=== PATIENT | male | born 1930 | race Caucasian/White ===

== ENCOUNTER → 2016-12-03 | Outpatient (CLI) | payer OTHER ==
[~2016-12-03] MED LIST: AMIO200T4 PO; B-COCAP21 PO; BICA50TA6 PO; LPRI75 IM; MIDO5TAB PO; POTA20TA16 PO; XRL15 PO
== END | disposition home or self-care (01) ==
LOC: C.LABMFLN 10:06
PROVIDERS: ATTEND Urology
DX: R33.9 Retention of urine, unspecified (principal)

== ENCOUNTER 2017-06-21 08:43 | Emergency (ER) | payer OTHER ==
[2017-06-21 08:52] VITALS: TEMP 36.4; Ht 175.3 cm
--- NOTE | 2017-06-21 09:11 | EMERGENCY ROOM VISIT NOTE ---
History First contact with patient: 08:55 Chief Complaint: CATHETER REPLACEMENT Stated Complaint: BLOCKED CATH History of Present Illness The patient is an 86 year old male who presents to the Emergency Room with complaints of a blocked Vargas catheter. The patient has had an indwelling Vargas catheter for the last 14 months. He gets it changed every 30 days. He had it changed 2 weeks ago. The patient's states that he often has some blood in the catheter after it is changed. She states that on occasion it seems to get blocked with a blood clot. He is also on Xarelto. The patient denies any pain. He denies any fevers. He denies any abdominal pain. The patient denies any back pain. The patient sees Dr. Preethi Coles regularly and has an appointment in 2 weeks. Review of Systems A 10 system review of systems was completed with positives and pertinent negatives listed in the HPI. Past Medical/Surgical History Medical Problems: (1) Atrial fibrillation (2) Chronic indwelling Vargas catheter (3) Colon cancer (4) Diabetes (5) Hyperlipidemia (6) Hypertension (7) Prostate cancer Social History Smoking Status: Former Smoker Housing Status: lives with family Current/Historical Medications Scheduled Amiodarone Hcl (Cordarone), 200 MG PO DAILY B-Complex W/ C & Folic Acid ([place] Caps), 1 CAP PO DAILY Bicalutamide (Casodex), 50 MG PO DAILY Leuprolide Acetate (Lupron Depot), Unknown Dose IM [id number] Midodrine Hcl (Midodrine Hcl), 1 TAB PO TID Potassium Ext Rel (Klor-Con), 20 MEQ PO BID Rivaroxaban (Xarelto), 1 TAB PO DAILY Physical Exam Vital Signs Date Time Temp Pulse Resp B/P (MAP) Pulse Ox O2 Delivery O2 Flow Rate FiO2 06/21/17 10:50 80 20 164/92 96 06/21/17 08:52 36.4 82 18 136/87 97 Room Air Physical Exam VITALS: Vitals are noted on the nurse's note and reviewed by myself. Vital signs stable. The patient is afebrile. GENERAL: This is an 86-year-old male, in no acute distress, nondiaphoretic, well -developed well-nourished. SKIN: There are chronic venous stasis changes to the bilateral lower extremities. There is no tenting of the skin. Capillary reflex less than 2 seconds. HEAD: Normocephalic atraumatic. EARS: The external ears are normal in appearance. NOSE: Patent, turbinates without inflammation or discharge. MOUTH: Mucous membranes moist. Tongue does not deviate. NECK: Supple without nuchal rigidity. HEART: There is a loud systolic murmur. LUNGS: Clear to auscultation bilaterally without wheezes, rales or rhonchi. No retractions or accessory muscle use. ABDOMEN: Positive bowel sounds x 4. Soft, fullness of the bladder without true tenderness, without masses or organomegaly. : The external genitalia is normal in appearance. A Vargas catheter is present. There is blood in the Vargas catheter bag. MUSCULOSKELETAL: Full range of motion without joint tenderness in all extremities. Normal gait. Strength 5/5 throughout. NEURO: Patient was alert and oriented to person place and time. No focal neurological deficits. Medical Decision & Procedures Laboratory Results Test 06/21/17 10:48 Urine Color YELLOW Urine Appearance CLEAR (CLEAR) Urine pH 5.0 (4.5-7.5) Urine Specific [place] 1.012 (1.000-1.030) Urine Protein TRACE (NEG) Urine Glucose (UA) NEG (NEG) Urine Ketones NEG (NEG) Urine Occult Blood 3+ (NEG) Urine Nitrite NEG (NEG) Urine Bilirubin NEG (NEG) Urine Urobilinogen NEG (NEG) Urine Leukocyte Esterase TRACE (NEG) Urine WBC (Auto) 1-5 /hpf (0-5) Urine RBC (Auto) 0-4 /hpf (0-4) Urine Hyaline Casts (Auto) 1-5 /lpf (0-5) Urine Epithelial Cells (Auto) 0-5 /lpf (0-5) Urine Bacteria (Auto) NEG (NEG) ED Course The patient was seen and examined. Previous visits were reviewed. The patient does not have a fever. The patient reports blocked Vargas catheter. He denies any other symptoms. The catheter was changed by the RN. He was feeling much better and it seemed to be draining appropriately. The patient had some blood in the catheter and a blood clot could have been causing the blockage. The patient states that it is common for him to have blood when he has the catheter changed. A urinalysis was obtained; however, irrigation was performed with saline and hydrogen peroxide. The patient should follow-up with urology for further evaluation and management. He should return with worsening symptoms. The patient was also seen and examined by who agrees with the assessment and treatment plan. Medical Decision Differential diagnosis includes urinary tract infection, urinary retention, bladder cancer, among others Medication Reconcilliation Current Medication List: was personally reviewed by me Blood Pressure Screening Patient's blood pressure: Elevated blood pressure Blood pressure disposition: Elevated BP felt to be situational Impression Primary Impression: Complication of catheter Departure Information Dispostion Home / Self-Care Condition GOOD Referrals Iban Nur M.D. (PCP) Patient Instructions ED Catheter Care Milana Vargas [facility] Additional Instructions Follow up with urology as scheduled Return with worsening symptoms, bleeding, fevers, abdominal pain
[2017-06-21] MEDS ORDERED: MIDO5TAB PO (09:32)
[2017-06-21] MEDS ORDERED: BICA50TA6 PO (09:32)
[2017-06-21] MEDS ORDERED: LPRI75 IM (09:32)
[2017-06-21] MEDS ORDERED: B-COCAP21 PO (09:32)
[2017-06-21] MEDS ORDERED: POTA20TA16 PO (09:32)
[2017-06-21] MEDS ORDERED: AMIO200T4 PO (09:32)
[2017-06-21] MEDS ORDERED: XRL15 PO (09:32)
--- NOTE | 2017-06-21 09:43 | EMERGENCY ROOM VISIT NOTE ---
ED Visit Note First contact with patient: 08:55 86-year-old male with some blood around his catheter was fully evaluated by Lainey Masters PA-C. Please see her note. I also independently evaluated the patient. Vargas catheter was changed.
[2017-06-21 10:50] VITALS: BP 164/92; PULSE 80; O2SAT 96
[2017-06-21 11:05] LABS: URINE APPEARANCE CLEAR (CLEAR); URINE BILIRUBIN NEG (NEG); URINE COLOR YELLOW; URINE EPITHELIAL CELL AUTO 0-5 /lpf (0-5); URINE NITRITE NEG (NEG); URINE SPECIFIC GRAVITY 1.012 (1.000-1.030); UROBILINOGEN NEG (NEG); ZZURINE CULT IF INDIC CATH NO
[2017-06-21 11:08] LABS: MANUAL MICROSCOPIC REQUIRED? NO; REVIEW REQ? NO
== END 2017-06-21 10:53 | disposition home or self-care (01) ==
LOC: C.EDB 08:45
DX: T83.098A Other mechanical complication of other urinary catheter, initial encounter (principal); Y84.6 Urinary catheterization as the cause of abnormal reaction of the patient, or of later complication, without mention of misadventure at the time of the procedure; Z79.01 Long term (current) use of anticoagulants; I48.91 Unspecified atrial fibrillation; E11.9 Type 2 diabetes mellitus without complications; E78.5 Hyperlipidemia, unspecified; I10 Essential (primary) hypertension; Z85.038 Personal history of other malignant neoplasm of large intestine; Z85.46 Personal history of malignant neoplasm of prostate; Z87.891 Personal history of nicotine dependence; Z79.899 Other long term (current) drug therapy

== ENCOUNTER → 2017-07-09 | Outpatient (CLI) | payer OTHER | END | disposition home or self-care (01) | LOC: C.PATHSPEC 17:00 | PROVIDERS: ATTEND Dermatology | DX: C44.622 Squamous cell carcinoma of skin of right upper limb, including shoulder (principal); D04.39 Carcinoma in situ of skin of other parts of face; D04.5 Carcinoma in situ of skin of trunk ==

== ENCOUNTER → 2017-08-24 | Outpatient (CLI) | payer OTHER | END | disposition home or self-care (01) | LOC: C.PATHSPEC 16:39 | PROVIDERS: ATTEND Dermatology | DX: C44.619 Basal cell carcinoma of skin of left upper limb, including shoulder (principal); L90.5 Scar conditions and fibrosis of skin ==

== ENCOUNTER → 2017-11-11 | Outpatient (CLI) | payer OTHER ==
[~2017-11-11] MED LIST changes: +ASCO-63 PO; -MIDO5TAB PO; +MTHH1 PO; +MULT60CA PO
[2017-11-11 17:59] LABS: HEMATOCRIT 41.6 % (42-52); MEAN CELL VOLUME 98.8 fL (80-100); MEAN CORPUSCULAR HEMOGLOBIN 32.3 pg (25-34); MEAN CORPUSCULAR HGB CONC 32.7 g/dl (32-36); MEAN PLATELET VOLUME 9.6 fL (7.4-10.4); PLATELET COUNT 246 K/uL (130-400); RED BLOOD COUNT 4.21 M/uL (4.7-6.1); WHITE BLOOD COUNT 7.47 K/uL (4.8-10.8)
[2017-11-11 18:23] LABS: ALT/SGPT 16 U/L (12-78); AST/SGOT 11 U/L (15-37); BLOOD UREA NITROGEN 23 mg/dl (7-18); BUN/CREATININE RATIO 16.4 (10-20); CALCIUM 9.2 mg/dl (8.5-10.1); CARBON DIOXIDE 26 mmol/L (21-32); CHLORIDE 103 mmol/L (98-107); CREATININE 1.39 mg/dl (0.60-1.40); GLUCOSE 104 mg/dl (70-99); POTASSIUM 4.4 mmol/L (3.5-5.1); SODIUM 137 mmol/L (136-145)
== END | disposition home or self-care (01) ==
LOC: C.LABMFLN 12:34
PROVIDERS: ATTEND Internal Medicine Cardiovascular Disease
DX: I48.91 Unspecified atrial fibrillation (principal); I95.1 Orthostatic hypotension; I35.0 Nonrheumatic aortic (valve) stenosis; R09.89 Other specified symptoms and signs involving the circulatory and respiratory systems

== ENCOUNTER → 2017-11-11 | Outpatient (CLI) | payer OTHER | END | disposition home or self-care (01) | LOC: C.PATHSPEC 12:47 | PROVIDERS: ATTEND Dermatology | DX: L82.1 Other seborrheic keratosis (principal); L57.8 Other skin changes due to chronic exposure to nonionizing radiation ==

== ENCOUNTER → 2017-12-17 | Outpatient (CLI) | payer OTHER | END | disposition home or self-care (01) | LOC: C.LABMFLN 11:18 | PROVIDERS: ATTEND Family Medicine | DX: C61 Malignant neoplasm of prostate (principal) ==

== ENCOUNTER → 2018-01-01 | Outpatient (CLI) | payer OTHER ==
[~2018-01-01] MED LIST changes: +ACET-24 PO; +COLC0.6T54 PO; +HYDR-5688 PO; +MRLP17X PO; +MTR800 PO; +SENN-61 PO
--- NOTE | 2018-01-01 13:33 | DIAGNOSTIC IMAGING REPORT ---
BONE SCAN WHOLE BODY CLINICAL HISTORY: PROSTATE CA COMPARISON STUDY: None FINDINGS: The patient was injected with 25.8 mCi of technetium 99m MDP. Three-hour delayed whole body images were acquired. Foci of increased activity within the knees are felt to be degenerative. There is indwelling Vargas catheter present. There is slight heterogeneity of activity in the lumbar spine likely degenerative. There is a focus of increased activity within the left chromic clavicular joint and] clavicular joint. These are likely degenerative. There is an unexplained focus of increased activity involving the T7 vertebral body. Plain film correlation is advocated. IMPRESSION: 1. Unexplained focus of increased activity involving the T7 vertebral body. Plain film correlation is advocated to determine whether there is a corresponding compression fracture. Additional areas of increased uptake while nonspecific are likely on a degenerative basis Electronically signed by: Colten Mcclellan M.D. 01/01/2018 1:32 PM Dictated Date/Time: 01/01/2018 1:26 PM
== END | disposition home or self-care (01) ==
LOC: C.NUCL 09:43
PROVIDERS: ATTEND Urology
DX: C61 Malignant neoplasm of prostate (principal)

== ENCOUNTER 2018-01-03 09:27 | Observation (INO) | payer OTHER ==
[~2018-01-03] VITALS: Ht 175.3 cm; Wt 74.3 kg
[~2018-01-03 09:27] MED LIST changes: -ACET-24 PO; -COLC0.6T54 PO; -HYDR-5688 PO; -MRLP17X PO; -MTR800 PO; -SENN-61 PO
--- NOTE | 2018-01-03 10:24 | EMERGENCY ROOM VISIT NOTE ---
History Report prepared by Vinicio: Danika Gatica Under the Supervision of: Dr. Henrry Busby M.D. First contact with patient: 09:53 Chief Complaint: CONSTIPATION Stated Complaint: SIDE PAIN, CONSTIPATION Nursing Triage Summary: Patient states "I have not had a bowel movement for 5 days. I've used suppository and they have not work." Denies n/v. History of Present Illness The patient is an 87 year old male who presents to the Emergency Room with complaints of persistent constipation for five days. He usually has a bowel movement every other day, thought his last normal stool was December 29, 2017. He notes his bowel movement was normal and loose at that time. He normally takes laxatives and stool softeners, though he has had no relief in the last five days. He took suppositories four days ago, which provided relief at that time, though he notes the constipation recurred. The patient also reports abdominal pain. Per , the patient was given her medication of hydrocodone and acetaminophen for his pain. He has a history of fecal impaction one year ago for eight days. The patient has a history of prostate cancer in 1991. His PSA was recently checked and showed a value of 125. He has a history of left leg edema. He denies any fevers chills, buttock pain, or chest pain. Source of History: patient, spouse/significant other Onset: five days Position: other (global ) Quality: other (constipation) Timing: other (persistent) Associated Symptoms: + abdominal pain, No fevers, No chills, No chest pain Note: He denies any buttock pain. Review of Systems See HPI for pertinent positives & negatives. A total of 10 systems reviewed and were otherwise negative. 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 Nurse's notes were reviewed and I agree with. Family History Diabetes mellitus FH: heart disease FH: lung disease FHx: cancer Hypertension Kidney disease Kidney stones Social History Smoking Status: Former Smoker Smokeless Tobacco Use: No Alcohol Use: none Drug Use: none Marital Status: Housing Status: lives with significant other Occupation Status: retired Current/Historical Medications Scheduled Amiodarone Hcl (Cordarone), 200 MG PO DAILY Ascorbic Acid (Vitamin C), 500 MG PO BID B-Complex W/ C & Folic Acid ([place] Caps), 1 CAP PO DAILY Bicalutamide (Casodex), 50 MG PO DAILY Leuprolide Acetate (Lupron Depot), Unknown Dose IM [id number] Multiple Vitamins W/ Minerals (Preservision Areds 2), 1 CAP PO DAILY Rivaroxaban (Xarelto), 15 MG PO DAILY Scheduled PRN Colchicine (Colchicine), 0.6 MG PO BID PRN for GOUT Hydrocodone/Acetaminophen 5MG/325MG ([place] 5MG/325MG), 1 TABLET PO UD PRN for Pain Allergies Coded Allergies: Sulfa Antibiotics (Unverified Allergy, Unknown, RED URINE, 01/03/18) Physical Exam Vital Signs Date Time Temp Pulse Resp B/P (MAP) Pulse Ox O2 Delivery O2 Flow Rate FiO2 01/03/18 12:16 74 16 167/88 96 Room Air 01/03/18 11:10 74 14 149/82 96 Room Air 01/03/18 09:32 36.4 88 18 136/83 96 Room Air Physical Exam General: Non-ill appearing older male in no acute distress. HEENT: Normal cephalic atraumatic. Pupils are equal round and reactive to light. Extraocular movements are intact. Oropharynx is pink with moist mucous membranes. No swelling of the mouth lips or tongue. Neck: Supple with a midline trachea. No meningeal signs or stiffness, no JVD or bruits. No Stridor. Chest: Clear to auscultation bilaterally. No wheezes or rhonchi. No increased work of breathing. Heart: regular rate and rhythm. Abdomen: Soft nontender, nondistended without rebound guarding or rigidity. Extremities: No cyanosis clubbing. No calf tenderness or assymetry. Chronic vascular changes. 2+ distal pulses. Spine/Back. Non tender to palpation. No CVA tenderness Skin: Good turgor without rashes. Neurologic exam: Cranial nerves two through 12 are intact. Motor and sensation are intact and symmetrical throughout. Medical Decision & Procedures ER Provider Diagnostic Interpretation: Radiology results as stated below per my review and radiologist interpretation: ABD/PELVIS NO IV OR ORAL CONT CLINICAL HISTORY: 87 years-old Male presenting with eval for constipation, bowel obstruction, no bowel movement for 5 days, history of prostate cancer. TECHNIQUE: Multidetector CT of the abdomen and pelvis was performed without the use of intravenous contrast. IV contrast: None. A dose lowering technique was used consistent with the principles of ALARA (as low as reasonably achievable). COMPARISON: None. CT DOSE (mGy.cm): The estimated cumulative dose is 2252.22 mGy.cm. FINDINGS: Kitchen Manager topogram: Evidence of vasectomy. Lung bases: Extensive consolidation and volume loss in the left lower lobe. There is also suggestion of peribronchovascular consolidation versus a lung nodule in the left lower lobe (series 5 image 13). Additional solid pulmonary nodule in the right middle lobe, measuring 16 mm (series 5 image 59) multiple additional solid pulmonary nodules noted bilaterally, greater on the right. Multichamber enlargement of the heart. Coronary artery and aortic valve calcification. Suggestion of prominent subcarinal pathologically enlarged lymph node (series 5 image 1). Liver: Normal morphology. Normal density. Multiple ill-defined the hypodense lesions in the liver with a suspicious morphology, incompletely characterized without intravenous contrast. Biliary: No gross biliary ductal dilatation allowing for noncontrast technique. Gallbladder contains gallstones. Pancreas: Moderate parenchymal atrophy. Spleen: Normal noncontrast appearance. Adrenal glands: Macroscopic fat-containing 3.6 cm nodule in the lateral limb of the left adrenal gland. Right adrenal gland normal. Kidneys and ureters: Multiple exophytic lesions arising from the lower pole of the left kidney, indeterminate but likely cysts. No hydronephrosis. No nephrolithiasis. Bladder: Decompressed with a Vargas catheter. Large bladder calculi evident. Impression wall thickening possibly chronic outlet obstruction. Pelvic organs: Prostate enlargement likely secondary to benign prostatic hyperplasia. Nodular soft tissue extension from the base of the prostate in the region of the left seminal vesicle. Bowel: Postsurgical changes of the anastomosis in the lower rectum. Nodular soft tissue infiltration in the rectal prostatic recess and along the mesorectal fascia. Extensive infiltration of the presacral region. Mild stool burden in the sigmoid colon to the level of the mid transverse colon. Moderate stool burden in the proximal transverse colon to the cecum. The appendix contains an appendicolith but is otherwise normal. Fecal material noted in the small bowel consistent with delayed transit. No bowel obstruction. Small hilar hernia. Several loops of distal small bowel may be tethered in the right pelvic sidewall. Peritoneal cavity: No free fluid or intraperitoneal gas. Extensive extraperitoneal/retroperitoneal fascial thickening in the pelvis. Lymph nodes: Multiple pathologically enlarged retroperitoneal lymph nodes. And index node in the left periaortic region measures 1.9 cm in the short axis (series 5 image 245). Vasculature: Atherosclerosis of the normal caliber abdominal aorta. Abdominal wall: Postsurgical changes of the infraumbilical midline ventral abdominal wall. Fat-containing left inguinal hernia. Musculoskeletal: Degenerative changes of the spine. Severe osteopenia. Anterior wedging compression deformity of greater than 50% height loss at L2 and to a slightly lesser extent at L4. Kyphoplasty changes at L5. Degenerative changes of the sacroiliac joints. Several old rib fractures noted. IMPRESSION: 1. Findings highly concerning for metastatic disease with retroperitoneal lymphadenopathy, mediastinal lymphadenopathy, hepatic metastases, pulmonary metastases. This is most concerning for metastatic prostate carcinoma. 2. Extensive nodular soft tissue extension from the base of the prostate is highly suspicious for a primary site of malignancy with regional invasion. This may invade the mesorectal fat. 3. Extensive presacral soft tissue/stranding could relate to direct extension of the primary malignancy versus exuberant granulation tissue/fibrosis in the setting of post radiation change. 4. Postsurgical changes of rectal anastomosis. Moderate stool burden primarily in the right and transverse colon compatible with constipation. No bowel obstruction. 5. 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 6. Severe osteopenia. 7. Age-indeterminate compression deformities of L2 and L4. Correlate with point tenderness. The report will be called/faxed according to standard departmental protocol. Electronically signed by: Ameya Talavera M.D. 01/03/2018 11:14 AM Dictated Date/Time: 01/03/2018 11:01 AM THORACIC SPINE WITHOUT CLINICAL HISTORY: 87 years-old Male presenting with eval for thoracic pathology, no bowel movement for 5 days, history of prostate cancer. TECHNIQUE: Multidetector CT of the thoracic spine was performed without the use of intravenous contrast. IV contrast: None. A dose lowering technique was used consistent with the principles of ALARA (as low as reasonably achievable). COMPARISON: Bone scan from 01/01/2018. CT DOSE (mGy.cm): The estimated cumulative dose is 2252.[address] abdomen and pelvis. FINDINGS: Kitchen Manager topogram: Kyphoplasty changes in the lower lumbar spine. Vasectomy. Significant vertebral body height loss of T7, which correlates with the distribution of abnormal radiotracer uptake on recent bone scan, compatible with acute or subacute compression fracture. Severe osteopenia. Significant inferior endplate concavity at L1, possibly related to underlying osteopenia. Altered level degenerative change. No osseous neural foraminal or spinal canal stenosis. A suspected benign hemangioma noted at the 7. No destructive osseous lesion. No malalignment apart from mildly exaggerated thoracic kyphosis secondary to the compression deformity. Evidence of old rib fractures. Multiple solid pulmonary nodules noted in both lungs, greater on the right. Cardiomegaly. Tortuosity and ectasia of the thoracic aorta, which measures 3.8 cm in transverse dimension along the descending portion and 4.2 cm in transverse dimension in the ascending portion. Pathologically enlarged subcarinal lymph node measuring 3.3 cm in the short axis. IMPRESSION: 1. Evidence of pulmonary metastatic disease and mediastinal lymphadenopathy. These likely relate to distant spread of prostate cancer. 2. No destructive osseous lesion to suggest osseous metastatic disease, which is compatible with the recent bone scan. 3. Compression fracture of T7, which is likely acute or subacute. This is compatible with the findings on recent bone scan. 4. Severe osteopenia. The report will be called/faxed according to standard departmental protocol. Electronically signed by: Ameya Talavera M.D. 01/03/2018 11:23 AM Dictated Date/Time: 01/03/2018 11:18 AM Laboratory Results 01/03/18 10:35 Red Blood Count 3.80, Mean Corpuscular Volume 95.5, Mean Corpuscular Hemoglobin 31.8, Mean Corpuscular Hemoglobin Concent 33.3, Mean Platelet Volume 8.4, Neutrophils (%) (Auto) 81.0, Lymphocytes (%) (Auto) 8.2, Monocytes (%) (Auto) 8.7, Eosinophils (%) (Auto) 1.5, Basophils (%) (Auto) 0.3, Neutrophils # (Auto) 4.92, Lymphocytes # (Auto) 0.50, Monocytes # (Auto) 0.53, Eosinophils # (Auto) 0.09, Basophils # (Auto) 0.02 01/03/18 10:35 Test 01/03/18 10:35 White Blood Count 6.08 K/uL (4.8-10.8) Red Blood Count 3.80 M/uL (4.7-6.1) Hemoglobin 12.1 g/dL (14.0-18.0) Hematocrit 36.3 % (42-52) Mean Corpuscular Volume 95.5 fL (80-100) Mean Corpuscular Hemoglobin 31.8 pg (25-34) Mean Corpuscular Hemoglobin Concent 33.3 g/dl (32-36) Platelet Count 232 K/uL (130-400) Mean Platelet Volume 8.4 fL (7.4-10.4) Neutrophils (%) (Auto) 81.0 % Lymphocytes (%) (Auto) 8.2 % Monocytes (%) (Auto) 8.7 % Eosinophils (%) (Auto) 1.5 % Basophils (%) (Auto) 0.3 % Neutrophils # (Auto) 4.92 K/uL (1.4-6.5) Lymphocytes # (Auto) 0.50 K/uL (1.2-3.4) Monocytes # (Auto) 0.53 K/uL (0.11-0.59) Eosinophils # (Auto) 0.09 K/uL (0-0.5) Basophils # (Auto) 0.02 K/uL (0-0.2) RDW Standard Deviation 45.5 fL (36.4-46.3) RDW Coefficient of Variation 13.1 % (11.5-14.5) Immature Granulocyte % (Auto) 0.3 % Immature Granulocyte # (Auto) 0.02 K/uL (0.00-0.02) Anion Gap 7.0 mmol/L (3-11) Est Creatinine Clear Calc Drug Dose 36.7 ml/min Estimated GFR () 51.1 Estimated GFR (Non- 44.1 BUN/Creatinine Ratio 14.4 (10-20) Calcium Level 9.3 mg/dl (8.5-10.1) Laboratory studies as stated above per my review. ED Course 1007: Past medical records reviewed. The patient was evaluated in room A12B, and a complete history and physical examination were performed. 1125: I reassessed the patient at this time. He is resting comfortably. I discussed the results and treatment plan with the patient and his family. I answered all pertaining questions that he had. He expressed understanding and verbalized agreement. The patient will be further evaluated. 1142: I spoke with mary Zarco. We discussed the patient's case. The patient will be evaluated by the [facility] for further management. Medical Decision Differentials include, but are not limited to constipation, cauda equina syndrome, spinous process, and prostate cancer. This patient comes in as described above. He complains of constipation although family says lately he's been having abdominal and back pain has been taking some of his family member's pain medicine. He was seen recently by urology and a bone scan yesterday as there is concern for rising PSA. I reviewed his bone scan and he has a T7 signal but no other signals. His abdomen is benign and nontender. He has no neurologic deficits to suggest cauda equina syndrome. IV access established and blood work was obtained. CAT scan was obtained of the thoracic spine as well as the abdomen. The thoracic spine appears to be a compression fracture. There are multiple metastatic lesions and pathologic nodes within the abdomen, in the retroperitoneum and liver and lungs. There are no bony abnormality seen. This picture is very consistent with metastatic cancer. Given his history this certainly could be prostate cancer however that typically metastases to the bones which this does not. He has a history of primary colon cancer as well and this could be that or another primary source. Given his recent pain and discomfort as well as need for further evaluation, I do think he needs to be a admitted/observed and have consulted Dr. No who saw him in the ER for these measures. Medication Reconcilliation Current Medication List: was personally reviewed by me Blood Pressure Screening Patient's blood pressure: Elevated blood pressure Blood pressure disposition: Elevated BP felt to be situational Consults Time Called: 1132 Consulting Physician: Dr. Rodriguez hospitalist Returned Call: 1142 I spoke with mary Zarco. We discussed the patient's case. The patient will be evaluated by the [facility] for further management. Impression Primary Impression: Metastatic cancer Additional Impressions: Diffuse pain Constipation Scribe Attestation The scribe's documentation has been prepared under my direction and personally reviewed by me in its entirety. I confirm that the note above accurately reflects all work, treatment, procedures, and medical decision making performed by me. Departure Information Dispostion Being Evaluated By Hospitalist Referrals Iban Nur M.D. (PCP) Patient Instructions My [facility] Problem Qualifiers
[2018-01-03] MEDS ORDERED: COLC0.6T54 PO ×2 (10:37)
[2018-01-03] MEDS ORDERED: HYDR-5688 PO ×2 (10:37)
[2018-01-03 10:47] LABS: BASO % 0.3 %; BASO ABS # 0.02 K/uL (0-0.2); EOS % 1.5 %; EOS ABS # 0.09 K/uL (0-0.5); HEMATOCRIT 36.3 % (42-52); HEMOGLOBIN 12.1 g/dL (14.0-18.0); IG# 0.02 K/uL (0.00-0.02); LYMPH % 8.2 %; MEAN CELL VOLUME 95.5 fL (80-100); MEAN CORPUSCULAR HEMOGLOBIN 31.8 pg (25-34); MEAN CORPUSCULAR HGB CONC 33.3 g/dl (32-36); MEAN PLATELET VOLUME 8.4 fL (7.4-10.4); MONO % 8.7 %; MONO ABS # 0.53 K/uL (0.11-0.59); NEUT ABS # 4.92 K/uL (1.4-6.5); PLATELET COUNT 232 K/uL (130-400); RED CELL DISTRIBUTION WIDTH CV 13.1 % (11.5-14.5); RED CELL DISTRIBUTION WIDTH SD 45.5 fL (36.4-46.3); WHITE BLOOD COUNT 6.08 K/uL (4.8-10.8)
[2018-01-03 11:08] LABS: CALCIUM 9.3 mg/dl (8.5-10.1); CREATININE 1.42 mg/dl (0.60-1.40); POTASSIUM 4.4 mmol/L (3.5-5.1)
--- NOTE | 2018-01-03 11:15 | DIAGNOSTIC IMAGING REPORT ---
ABD/PELVIS NO IV OR ORAL CONT CLINICAL HISTORY: 87 years-old Male presenting with eval for constipation, bowel obstruction, no bowel movement for 5 days, history of prostate cancer. TECHNIQUE: Multidetector CT of the abdomen and pelvis was performed without the use of intravenous contrast. IV contrast: None. A dose lowering technique was used consistent with the principles of ALARA (as low as reasonably achievable). COMPARISON: None. CT DOSE (mGy.cm): The estimated cumulative dose is 2252.22 mGy.cm. FINDINGS: Director Information Security topogram: Evidence of vasectomy. Lung bases: Extensive consolidation and volume loss in the left lower lobe. There is also suggestion of peribronchovascular consolidation versus a lung nodule in the left lower lobe (series 5 image 13). Additional solid pulmonary nodule in the right middle lobe, measuring 16 mm (series 5 image 59) multiple additional solid pulmonary nodules noted bilaterally, greater on the right. Multichamber enlargement of the heart. Coronary artery and aortic valve calcification. Suggestion of prominent subcarinal pathologically enlarged lymph node (series 5 image 1). Liver: Normal morphology. Normal density. Multiple ill-defined the hypodense lesions in the liver with a suspicious morphology, incompletely characterized without intravenous contrast. Biliary: No gross biliary ductal dilatation allowing for noncontrast technique. Gallbladder contains gallstones. Pancreas: Moderate parenchymal atrophy. Spleen: Normal noncontrast appearance. Adrenal glands: Macroscopic fat-containing 3.6 cm nodule in the lateral limb of the left adrenal gland. Right adrenal gland normal. Kidneys and ureters: Multiple exophytic lesions arising from the lower pole of the left kidney, indeterminate but likely cysts. No hydronephrosis. No nephrolithiasis. Bladder: Decompressed with a Vargas catheter. Large bladder calculi evident. Impression wall thickening possibly chronic outlet obstruction. Pelvic organs: Prostate enlargement likely secondary to benign prostatic hyperplasia. Nodular soft tissue extension from the base of the prostate in the region of the left seminal vesicle. Bowel: Postsurgical changes of the anastomosis in the lower rectum. Nodular soft tissue infiltration in the rectal prostatic recess and along the mesorectal fascia. Extensive infiltration of the presacral region. Mild stool burden in the sigmoid colon to the level of the mid transverse colon. Moderate stool burden in the proximal transverse colon to the cecum. The appendix contains an appendicolith but is otherwise normal. Fecal material noted in the small bowel consistent with delayed transit. No bowel obstruction. Small hilar hernia. Several loops of distal small bowel may be tethered in the right pelvic sidewall. Peritoneal cavity: No free fluid or intraperitoneal gas. Extensive extraperitoneal/retroperitoneal fascial thickening in the pelvis. Lymph nodes: Multiple pathologically enlarged retroperitoneal lymph nodes. And index node in the left periaortic region measures 1.9 cm in the short axis (series 5 image 245). Vasculature: Atherosclerosis of the normal caliber abdominal aorta. Abdominal wall: Postsurgical changes of the infraumbilical midline ventral abdominal wall. Fat-containing left inguinal hernia. Musculoskeletal: Degenerative changes of the spine. Severe osteopenia. Anterior wedging compression deformity of greater than 50% height loss at L2 and to a slightly lesser extent at L4. Kyphoplasty changes at L5. Degenerative changes of the sacroiliac joints. Several old rib fractures noted. IMPRESSION: 1. Findings highly concerning for metastatic disease with retroperitoneal lymphadenopathy, mediastinal lymphadenopathy, hepatic metastases, pulmonary metastases. This is most concerning for metastatic prostate carcinoma. 2. Extensive nodular soft tissue extension from the base of the prostate is highly suspicious for a primary site of malignancy with regional invasion. This may invade the mesorectal fat. 3. Extensive presacral soft tissue/stranding could relate to direct extension of the primary malignancy versus exuberant granulation tissue/fibrosis in the setting of post radiation change. 4. Postsurgical changes of rectal anastomosis. Moderate stool burden primarily in the right and transverse colon compatible with constipation. No bowel obstruction. 5. 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 6. Severe osteopenia. 7. Age-indeterminate compression deformities of L2 and L4. Correlate with point tenderness. The report will be called/faxed according to standard departmental protocol. Electronically signed by: Ameya Talavera M.D. 01/03/2018 11:14 AM Dictated Date/Time: 01/03/2018 11:01 AM
--- NOTE | 2018-01-03 11:24 | DIAGNOSTIC IMAGING REPORT ---
THORACIC SPINE WITHOUT CLINICAL HISTORY: 87 years-old Male presenting with eval for thoracic pathology, no bowel movement for 5 days, history of prostate cancer. TECHNIQUE: Multidetector CT of the thoracic spine was performed without the use of intravenous contrast. IV contrast: None. A dose lowering technique was used consistent with the principles of ALARA (as low as reasonably achievable). COMPARISON: Bone scan from 01/01/2018. CT DOSE (mGy.cm): The estimated cumulative dose is 2252.[address] abdomen and pelvis. FINDINGS: Clinical Data Associate topogram: Kyphoplasty changes in the lower lumbar spine. Vasectomy. Significant vertebral body height loss of T7, which correlates with the distribution of abnormal radiotracer uptake on recent bone scan, compatible with acute or subacute compression fracture. Severe osteopenia. Significant inferior endplate concavity at L1, possibly related to underlying osteopenia. Altered level degenerative change. No osseous neural foraminal or spinal canal stenosis. A suspected benign hemangioma noted at the 7. No destructive osseous lesion. No malalignment apart from mildly exaggerated thoracic kyphosis secondary to the compression deformity. Evidence of old rib fractures. Multiple solid pulmonary nodules noted in both lungs, greater on the right. Cardiomegaly. Tortuosity and ectasia of the thoracic aorta, which measures 3.8 cm in transverse dimension along the descending portion and 4.2 cm in transverse dimension in the ascending portion. Pathologically enlarged subcarinal lymph node measuring 3.3 cm in the short axis. IMPRESSION: 1. Evidence of pulmonary metastatic disease and mediastinal lymphadenopathy. These likely relate to distant spread of prostate cancer. 2. No destructive osseous lesion to suggest osseous metastatic disease, which is compatible with the recent bone scan. 3. Compression fracture of T7, which is likely acute or subacute. This is compatible with the findings on recent bone scan. 4. Severe osteopenia. The report will be called/faxed according to standard departmental protocol. Electronically signed by: Ameya Talavera M.D. 01/03/2018 11:23 AM Dictated Date/Time: 01/03/2018 11:18 AM
[2018-01-03] MEDS ORDERED: CONSULT PHARMACY STA (12:19)
[2018-01-03] MEDS ORDERED: OXYCODONE HCL IR 5 MG TAB (IMMEDIATE RELEASE) PO PRN (12:30)
[2018-01-03] MEDS ORDERED: ONDANSETRON INJ 2 MG/ML 2 ML VIAL IV PRN (12:30)
[2018-01-03] MEDS ORDERED: ALUMINUM/MAGNESIUM/SIMETH (MAALOX MAX) 30 ML UDC PO PRN (12:30)
[2018-01-03] MEDS ORDERED: SODIUM CHLORIDE 0.9% 1000ML 1,000 ML IV SCH (12:30)
--- NOTE | 2018-01-03 12:37 | History and Physical ---
History & Physical Date & Time of Service: Jan 03, 2018 at 12:32 Chief Complaint: Side Pain, Constipation Primary Care Physician: Iban Nur M.D. History of Present Illness Source: patient, family This pleasant 87-year-old male presents mostly due to weakness and constipation. He had not a bowel movement in 5 days. He is currently being treated for prostate cancer with Casodex and Lupron. He is a history of colonic rectal cancer which was treated by resection and likely radiation. He' s been having increased pain in his spine has been using his 's hydrocodone to treat his pain this plus some previous rectal surgery has likely resulted in significant constipation. Upon evaluation in our ER a CT scan of the abdomen and pelvis shows widely metastatic disease suspected to be of prostate origin. He also has 3 compression fractures T7 L2 and L4. Patient seemingly was unaware of the metastatic nature of his prostate cancer. His was present in the room is unable to care for him at home given his level of weakness and inability to ambulate due to his loss of strength. We discussed possibly progression towards palliative care and they have not had this discussion with her outpatient providers this may be the opportune time to again discussing goals of care for the future given the CAT scan findings. The patient is agreeable to stay for pain control, constipation improvement, and palliative care discussion. It incidentally noted on admission that he has a stage I to 2 sacral decubitus present on admission likely due to his recent immobility Past Medical/Surgical History Medical Problems: (1) Atrial fibrillation Status: Chronic (2) Chronic indwelling Vargas catheter Status: Chronic (3) Colon cancer Status: Resolved (4) Diabetes Status: Chronic (5) Hyperlipidemia Status: Chronic (6) Hypertension Status: Chronic (7) Prostate cancer Status: Resolved Family History Diabetes mellitus FH: heart disease FH: lung disease FHx: cancer Hypertension Kidney disease Kidney stones Social History Smoking Status: Former Smoker Smokeless Tobacco Use: No Drug Use: none Marital Status: Occupational Status: retired Immunizations History of Influenza Vaccine: Unknown Multi-Drug Resistant Organisms History of MDRO: Yes Type of MDRO: MRSA Allergies Coded Allergies: Sulfa Antibiotics (Unverified Allergy, Unknown, RED URINE, 01/03/18) Home Medications Scheduled Amiodarone Hcl (Cordarone), 200 MG PO DAILY Ascorbic Acid (Vitamin C), 500 MG PO BID B-Complex W/ C & Folic Acid (Presley Caps), 1 CAP PO DAILY Bicalutamide (Casodex), 50 MG PO DAILY Leuprolide Acetate (Lupron Depot), Unknown Dose IM [id number] Multiple Vitamins W/ Minerals (Preservision Areds 2), 1 CAP PO DAILY Rivaroxaban (Xarelto), 15 MG PO DAILY Scheduled PRN Colchicine (Colchicine), 0.6 MG PO BID PRN for GOUT Hydrocodone/Acetaminophen 5MG/325MG ([place] 5MG/325MG), 1 TABLET PO UD PRN for Pain Review of Systems ROS: Patient appears aged has a drooping right lower eyelid and is fairly immobile even to move himself about his bed No double vision blurry vision No problems with speech or swallowing No palpitations, chest pain or pressure No Wheezing or breathing issues Patient has had mild abdominal pain and bloating mostly in the left lower quadrant and marked constipation but no nausea or vomiting No burning urine she's had urinary incontinence and a Vargas catheter was placed in the ER No focal joint pain or muscle pain Patient is changes of chronic venous stasis to his lower extremities bilaterally No unusual bruising or bleeding Lumbar focused back pain no focal numbness but general loss of strength No changes in memory or confusion Physical Exam Vital Signs Date Time Temp Pulse Resp B/P (MAP) Pulse Ox O2 Delivery O2 Flow Rate FiO2 01/03/18 12:16 74 16 167/88 96 Room Air 01/03/18 11:10 74 14 149/82 96 Room Air 01/03/18 09:32 36.4 88 18 136/83 96 Room Air General Appearance: WD/WN, no apparent distress Head: normocephalic, atraumatic Eyes: sclerae normal, + pertinent finding (right lower eyelid is drooping) ENT: hearing grossly normal, pharynx normal Neck: supple, no JVD Respiratory/Chest: chest non-tender, lungs clear, normal breath sounds Cardiovascular: regular rate, rhythm (although history of atrial fibrillation) , no murmur Abdomen/GI: + tenderness (mild to the left lower quadrant), + distended, + pertinent finding (rectal exam was performed showing no obstipation is a very large can of fibrotic area in his rectum streets sharp angle right after entering his rectum) Genitourinary - Male: normal male genitalia, normal phallus Back: + pertinent finding (patient has point tenderness his lumbar spine but no paravertebral tenderness) Extremities/Musculoskelatal: + pertinent finding (as mentioned chronic venous stasis and mild edema to his lower extremities pulses are intact however bilaterally to the posterior tibialis) Neurologic/Psych: alert, oriented x 3 Skin: + pertinent finding (CC changes of chronic venous stasis) Diagnostics Laboratory Results Results Past 24 Hours Test 01/03/18 10:35 Range/Units White Blood Count 6.08 4.8-10.8 K/uL Red Blood Count 3.80 4.7-6.1 M/uL Hemoglobin 12.1 14.0-18.0 g/dL Hematocrit 36.3 42-52 % Mean Corpuscular Volume 95.5 80-100 fL Mean Corpuscular Hemoglobin 31.8 25-34 pg Mean Corpuscular Hemoglobin Concent 33.3 32-36 g/dl Platelet Count 232 130-400 K/uL Mean Platelet Volume 8.4 7.4-10.4 fL Neutrophils (%) (Auto) 81.0 % Lymphocytes (%) (Auto) 8.2 % Monocytes (%) (Auto) 8.7 % Eosinophils (%) (Auto) 1.5 % Basophils (%) (Auto) 0.3 % Neutrophils # (Auto) 4.92 1.4-6.5 K/uL Lymphocytes # (Auto) 0.50 1.2-3.4 K/uL Monocytes # (Auto) 0.53 0.11-0.59 K/uL Eosinophils # (Auto) 0.09 0-0.5 K/uL Basophils # (Auto) 0.02 0-0.2 K/uL RDW Standard Deviation 45.5 36.4-46.3 fL RDW Coefficient of Variation 13.1 11.5-14.5 % Immature Granulocyte % (Auto) 0.3 % Immature Granulocyte # (Auto) 0.02 0.00-0.02 K/uL Sodium Level 135 136-145 mmol/L Potassium Level 4.4 3.5-5.1 mmol/L Chloride Level 102 98-107 mmol/L Carbon Dioxide Level 25 21-32 mmol/L Anion Gap 7.0 3-11 mmol/L Blood Urea Nitrogen 21 7-18 mg/dl Creatinine 1.42 0.60-1.40 mg/dl Est Creatinine Clear Calc Drug Dose 36.7 ml/min Estimated GFR () 51.1 Estimated GFR (Non- 44.1 BUN/Creatinine Ratio 14.4 10-20 Random Glucose 129 70-99 mg/dl Calcium Level 9.3 8.5-10.1 mg/dl Diagnostic Radiology CT scan abdomen and pelvis 1. Findings highly concerning for metastatic disease with retroperitoneal lymphadenopathy, mediastinal lymphadenopathy, hepatic metastases, pulmonary metastases. This is most concerning for metastatic prostate carcinoma. 2. Extensive nodular soft tissue extension from the base of the prostate is highly suspicious for a primary site of malignancy with regional invasion. This may invade the mesorectal fat. 3. Extensive presacral soft tissue/stranding could relate to direct extension of the primary malignancy versus exuberant granulation tissue/fibrosis in the setting of post radiation change. 4. Postsurgical changes of rectal anastomosis. Moderate stool burden primarily in the right and transverse colon compatible with constipation. No bowel obstruction. 5. 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 6. Severe osteopenia. 7. Age-indeterminate compression deformities of L2 and L4. Correlate with point tenderness. CT scan of the thorax also shows T7 compression fracture plus evidence of pulmonary metastatic disease and mediastinal lymphadenopathy. These likely relate to distant spread of prostate cancer. Impression Assessment and Plan 87-year-old male who presents with constipation and issues with back pain found to have widely metastatic prostate cancer Prostate cancer we'll continue his Casodex his Lupron is every 6 months will courtesy notify Dr[address] Toribio informally consult heme on to see if there is any other salvage therapeutically be given will also consult palliative care as goals of care need to be discussed with the family For his pain control off from parenteral opiate control scheduled Tylenol and oral oxycodone palliative care can also help with medication choices Constipation there is no obstipation or blockage in his rectal canal that we can feel by exam we will use MiraLAX Senokot. Consideration of Relistor is also undertaken Atrial fibrillation patient will remain on amiodarone and Xarelto, if oncology wishes to pursue a biopsy of any of the metastatic lesions Xarelto will need to be held DVT prevention is Xarelto Patient is a DO NOT RESUSCITATE confirmed in the room with his son and present Level of Care considering transition to palliative care Advanced Directives Existing Advance Directive: Yes Resuscitation Status DO NOT RESUSCITATE VTE Prophylaxis VTE Risk Assessment Done? Y/N: Yes Risk Level: Moderate Given or contraindicated: Other Anticoagulation
[2018-01-03] MEDS: AMIODARONE 200 MG TAB PO SCH (14:00)
[2018-01-03 14:08] VITALS: BP 188/93; PULSE 75; TEMP 36.6; O2SAT 95; Ht 175.3 cm; Wt 74.3 kg
[2018-01-03] MEDS ORDERED: IV FLUIDS COMPLETED PRN (14:30)
[2018-01-03 15:30] VITALS: BP 162/82; PULSE 71; TEMP 36.3; O2SAT 97
[2018-01-03] MEDS: RIVAROXABAN TAB 15 MG TAB PO SCH (15:31)
[2018-01-03] MEDS: POLYETHYLENE (MIRALAX) 17 GM PACK PO SCH (15:37)
[2018-01-03] MEDS: SENNA 8.6 MG TAB PO SCH (15:39)
[2018-01-03] MEDS: MAGNESIUM HYDROXIDE SUSP 30 ML UDC PO PRN (15:45)
--- NOTE | 2018-01-03 16:26 | Oncology Consultation ---
Oncology/Heme Consultation Date of Consultation: Jan 03, 2018. Attending Physician: Rashad No M.D. Reason for Consultation: History of prostate and rectal carcinoma History of Present Illness Mr. Calix is a delightful 87-year-old gentleman that states he has a history of prostate carcinoma that dates back to early . He states he was treated immediately with Casodex in the past couple years he has been receiving Lupron. The bulk of his care up until very recently has been in the [facility]. In 1998 he states he was found to have cancer in what I suspect was the rectal area. He was told by his oncologist Dr. Jimenez that the cancer seem to be located only in the rectum and after surgery the patient had what sounds like a bimodality therapy. He is now admitted with back pain is been ongoing for the past 3-4 weeks. He points to an area that is around T7 or T8. He states he has had back problems before with back pain and has had surgery for prior back problems. A CT scan done on admission shows changes that will be reviewed but seem to be more consistent with osteopenia and subsequent fracture rather than metastatic disease. However CT scan reports have commented on changes consistent metastatic deposits to the live, mediastinal adenopathy, as well as the lungs, and retroperitoneal adenopathy. We are asked to comment about this. His performance status could be easily graded at 2.0-3.0. He has had constipation in addition. He denies any fever chills or any other bone pain. He states his weight has been stable. He seems to be a fair to good historian Past Medical/Surgical History Medical Problems: (1) Complication of catheter Status: Acute (2) Diffuse pain Status: Acute (3) Hematuria Status: Acute (4) Metastatic cancer Status: Acute Family History Diabetes mellitus FH: heart disease FH: lung disease FHx: cancer Hypertension Kidney disease Kidney stones Social History Smoking Status: Former Smoker Smokeless Tobacco Use: No Drug Use: none Marital Status: Housing Status: lives with significant other Occupation Status: retired Allergies Coded Allergies: Sulfa Antibiotics (Unverified Allergy, Unknown, RED URINE, 01/03/18) Home Medications Scheduled Amiodarone Hcl (Cordarone), 200 MG PO DAILY Ascorbic Acid (Vitamin C), 500 MG PO BID B-Complex W/ C & Folic Acid ([place] Caps), 1 CAP PO DAILY Bicalutamide (Casodex), 50 MG PO DAILY Leuprolide Acetate (Lupron Depot), Unknown Dose IM [id number] Multiple Vitamins W/ Minerals (Preservision Areds 2), 1 CAP PO DAILY Rivaroxaban (Xarelto), 15 MG PO DAILY Scheduled PRN Colchicine (Colchicine), 0.6 MG PO BID PRN for GOUT Hydrocodone/Acetaminophen 5MG/325MG ([place] 5MG/325MG), 1 TABLET PO UD PRN for Pain Current Inpatient Medications Current Inpatient Medications Medications (Trade) Dose Ordered Sig/Erik Route Start Time Stop Time Status Last Admin Dose Admin Amiodarone HCl (Cordarone Tab) 200 mg DAILY PO 01/03/18 14:00 02/02/18 13:59 Bicalutamide (Casodex Tab) 50 mg DAILY PO 01/04/18 08:00 02/03/18 08:59 Rivaroxaban (Xarelto Tab) 15 mg QDD PO 01/03/18 17:00 02/02/18 16:59 01/03/18 15:31 15 MG Al Hydrox/Mg Hydrox/Simethicone (Maalox Max Susp) 15 ml Q4H PRN PO 01/03/18 12:30 02/02/18 12:29 Magnesium Hydroxide (Milk Of Magnesia Susp) 30 ml Q6H PRN PO 01/03/18 12:30 02/02/18 12:29 01/03/18 15:45 30 ML Ondansetron HCl (Zofran Inj) 4 mg Q6H PRN IV 01/03/18 12:30 02/02/18 12:29 Oxycodone HCl (Roxicodone Immediate Rel Tab) 10 mg Q6 PRN PO 01/03/18 12:30 01/17/18 12:29 Acetaminophen (Tylenol Tab) 1,000 mg BID PO 01/03/18 20:00 02/02/18 20:59 Polyethylene (Miralax Powder Packet) 17 gm BID PO 01/03/18 20:00 02/02/18 20:59 01/03/18 15:37 17 GM Senna (Senokot Tab) 8.6 mg BID PO 01/03/18 20:00 02/02/18 20:59 01/03/18 15:39 8.6 MG Sodium Chloride 1,000 ml @ 100 mls/hr Q10H IV 01/03/18 12:30 01/03/18 22:29 01/03/18 15:31 100 MLS/HR Miscellaneous (Iv Fluids Completed) 1 ea PRN PRN N/A 01/03/18 14:30 01/03/19 14:29 Review of Systems Constitutional: Negative for weight loss, night sweats, or fever Eyes: Negative for event change of vision ENT: Negative for epistaxis, nasal discharge, sore throat, or deafness Cardiovascular: Negative for chest pain, palpitations, dizziness, diaphoresis Respiratory: Negative for new shortness of breath,hemoptysis, or purulent cough Gastrointestinal: Negative for diarrhea, hematemesis, melena, nausea, vomiting , or dyspepsia. He has been constipated. Integumentary (skin): Negative for rash or jaundice discoloration Genitourinary: Negative for urinary frequency or dysuria Neurological: Negative for weakness, seizure activity, headache, or dizziness Lymphatic/Hematologic: Negative for petechiae, bleeding or new adenopathy Musculoskeletal: Positive for back pain that seems rather focal as reviewed Allergic/Immunologic: Negative for unusual rash or pruritis. Physical Exam Date Time Temp Pulse Resp B/P (MAP) Pulse Ox O2 Delivery O2 Flow Rate FiO2 01/03/18 14:08 36.6 75 16 188/93 95 Room Air 01/03/18 13:19 69 16 172/88 95 01/03/18 12:16 74 16 167/88 96 Room Air 01/03/18 11:10 74 14 149/82 96 Room Air 01/03/18 09:32 36.4 88 18 136/83 96 Room Air Constitutional: vitals are stable. Elderly delightful gentleman. He appears quite comfortable.. Eyes: Eyes are SAVANNA EOMI without conjuctival erythema or icterus. ENT: External examination was negative for masses. Neck: Negative for masses or palpable thyromegaly Respiratory: Lung sounds were generally clear bilaterally Cardiovascular: Heart was RRR without significant murmur, gallops aoe rubs Gastrointestinal: No palpable hepatic or splenomegaly. The abdomen was soft with normal bowel sounds. He has an Vargas catheter that I believe is been in place for quite some time. Lymphatic system: there was no palpable peripheral lymphadenopathy Musculoskeletal System: The musculoskeletal system seemed concordant with age. Skin: The skin was negative for jaundice. Neurologic exam: The exam was negative for any focal findings. Deep tendon reflexes were equal and symmetrical. 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 Psychiatric exam: Was essentially negative with normal mood and effect. Extremities: negative for edema. Laboratory Results Last 24 Hours Test 01/03/18 10:35 01/03/18 16:19 White Blood Count 6.08 K/uL Red Blood Count 3.80 M/uL Hemoglobin 12.1 g/dL Hematocrit 36.3 % Mean Corpuscular Volume 95.5 fL Mean Corpuscular Hemoglobin 31.8 pg Mean Corpuscular Hemoglobin Concent 33.3 g/dl Platelet Count 232 K/uL Mean Platelet Volume 8.4 fL Neutrophils (%) (Auto) 81.0 % Lymphocytes (%) (Auto) 8.2 % Monocytes (%) (Auto) 8.7 % Eosinophils (%) (Auto) 1.5 % Basophils (%) (Auto) 0.3 % Neutrophils # (Auto) 4.92 K/uL Lymphocytes # (Auto) 0.50 K/uL Monocytes # (Auto) 0.53 K/uL Eosinophils # (Auto) 0.09 K/uL Basophils # (Auto) 0.02 K/uL RDW Standard Deviation 45.5 fL RDW Coefficient of Variation 13.1 % Immature Granulocyte % (Auto) 0.3 % Immature Granulocyte # (Auto) 0.02 K/uL Sodium Level 135 mmol/L Potassium Level 4.4 mmol/L Chloride Level 102 mmol/L Carbon Dioxide Level 25 mmol/L Anion Gap 7.0 mmol/L Blood Urea Nitrogen 21 mg/dl Creatinine 1.42 mg/dl Est Creatinine Clear Calc Drug Dose 36.7 ml/min Estimated GFR () 51.1 Estimated GFR (Non- 44.1 BUN/Creatinine Ratio 14.4 Random Glucose 129 mg/dl Calcium Level 9.3 mg/dl Assessment & Plan Repeat recent PSA was more elevated than it was last year at this time. 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 It is unclear as to whether the nodules seen on CT scan represent metastatic disease from the prostate or perhaps the rectal lesion. We will ask for a CEA as well as repeat PSA and a testosterone level. I like to try to get the records out of [place] (Dr. Davion Jimenez). It is unclear as to whether the patient has had any serial x-rays done in the [place] area that might give us some insight. In addition I will stop the Casodex. He is been on this medicine for quite some time (over 20 years) sometimes just withdrawing Casodex can lead to a PSA and prostate cancer response at 20-25%. Prednisone 5 mg twice daily could be added to that. Our service will follow.
[2018-01-03 20:00] VITALS: BP 168/86; PULSE 80; TEMP 36.4; O2SAT 96
[2018-01-03 20:20] VITALS: O2SAT 96
[2018-01-03] MEDS: ACETAMINOPHEN 500 MG TAB PO SCH (20:24)
[2018-01-04] VITALS (7 sets, daily range): BP systolic 111–177; BP diastolic 73–98; PULSE 62–79; TEMP 36.4–36.6; O2SAT 9–99
[2018-01-04 06:37] LABS: HEMOGLOBIN 11.8 g/dL (14.0-18.0); MEAN CELL VOLUME 95.7 fL (80-100); MEAN CORPUSCULAR HEMOGLOBIN 31.4 pg (25-34); MEAN CORPUSCULAR HGB CONC 32.8 g/dl (32-36); MEAN PLATELET VOLUME 8.6 fL (7.4-10.4); PLATELET COUNT 231 K/uL (130-400); RED CELL DISTRIBUTION WIDTH CV 13.3 % (11.5-14.5); WHITE BLOOD COUNT 5.87 K/uL (4.8-10.8)
[2018-01-04 07:20] LABS: CALCIUM 9.1 mg/dl (8.5-10.1); CREATININE 1.12 mg/dl (0.60-1.40); POTASSIUM 4.1 mmol/L (3.5-5.1)
[2018-01-04] MEDS ORDERED: BICALUTAMIDE 50 MG TAB PO SCH (08:00)
[2018-01-04] MEDS: AMIODARONE 200 MG TAB PO SCH (08:37)
[2018-01-04] MEDS: SENNA 8.6 MG TAB PO SCH ×2 (08:38→20:20)
[2018-01-04] MEDS: POLYETHYLENE (MIRALAX) 17 GM PACK PO SCH ×2 (08:38→20:00)
[2018-01-04] MEDS: ACETAMINOPHEN 500 MG TAB PO SCH ×2 (08:39→20:20)
[2018-01-04] MEDS: MAGNESIUM HYDROXIDE SUSP 30 ML UDC PO PRN (08:39)
--- NOTE | 2018-01-04 09:02 | HEME/ONC PROGRESS NOTE ---
DATE: 01/04/2018 DIAGNOSES: 1. Constipation. 2. 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 3. Chronic pain syndrome. SUBJECTIVE: Mr. Barraza is a very pleasant 87-year-old gentleman who was admitted to [facility] yesterday with several days of constipation. Apparently, he is established with Dr. Clay Jimenez in [facility] with the diagnosis of metastatic prostate cancer. He had been on a combination of Lupron and Casodex. PSA on admission measured 172. CT scan of the abdomen and pelvis was performed on admission with findings concerning for metastatic disease including retroperitoneal and mediastinal lymphadenopathy as well as hepatic metastasis and possibly pulmonary metastasis. Extensive nodular soft tissue extension from the base of the prostate is also present. Apparently, leading up to admission, he had been experiencing what he describes as low back pain. He was taking his 's pain medication, which most likely contributed to his constipation. Dr. Esteban saw him initially yesterday and discontinued Casodex. The patient was examined at bedside this morning. He is awake, alert, and appropriate. He still has not moved his bowels, however. PHYSICAL EXAMINATION: GENERAL: He is a pleasant 87-year-old gentleman in no acute distress. VITAL SIGNS: Temperature 36.6, pulse 62, respirations 20, blood pressure 175/98. SKIN: Without rash or lesion. HEENT: Oral mucosa without erythema or ulceration. NECK: Supple. HEART: Early systolic murmur heard in the left precordium, 2/6 in intensity. LUNGS: Clear to auscultation bilaterally. ABDOMEN: Somewhat distended and firm. Bowel sounds are hypoactive. EXTREMITIES: No clubbing, cyanosis or edema. NEUROLOGIC: Grossly intact. LABORATORY DATA: Sodium 134, potassium 4.1, chloride 101, carbon dioxide 28, creatinine 1.12, BUN 17. WBC count 5870, hemoglobin 11.8, platelet count 231,000. IMPRESSION: 1. Constipation. 2. Chronic pain syndrome secondary to progressive metastatic disease. 3. Metastatic prostate cancer. PLAN: Mr. Barraza is a pleasant 87-year-old gentleman currently under Dr. Clay Jimenez's care for metastatic prostate cancer. It would appear upon discussing Mr. Barraza's issues with him he has not been followed very closely. It sounds like he receives leuprolide through the urology service. He has been on Casodex for many years. Dr. Esteban has discontinued Casodex, which is a maneuver to try to elicit hormone withdrawal response to tumor. At some point, Mr. Barraza needs to be reevaluated and considered for a therapeutic change. I understand palliative consult was ordered which I believe is reasonable. Goal of his admission is to alleviate constipative symptoms, consider pain management consult as well. I have nothing further to add. We will be more than happy to see him periodically during his hospital stay. TONEYD
[2018-01-04] MEDS ORDERED: HydrALAZINE HCL 20 MG/ML VIAL IV. PRN (09:45)
[2018-01-04] MEDS ORDERED: LISINOPRIL 5 MG TAB PO ONE (10:00)
[2018-01-04] MEDS ORDERED: SOD PHOSPHATE/SOD BIPHOSPHATE ENEMA 132 ML BTL PR PRN (10:30)
[2018-01-04] MEDS ORDERED: MAGNESIUM CITRATE 296 ML/BTL PO ONE (10:30)
[2018-01-04] MEDS ORDERED: MAGNESIUM CITRATE 296 ML/BTL PO PRN (10:30)
[2018-01-04] MEDS ORDERED: BISACODYL 10 MG SUPP PR PRN (10:30)
--- NOTE | 2018-01-04 11:18 | Palliative Care Consultation ---
Consultation Date of Consultation: Jan 04, 2018. Requesting Physician: Dr. No Attending Physician: Dr. Blanco Reason for Consultation: Goals of care History of Present Illness This 87 year old male patient with PMH prostate cancer, afib, chronic Vargas, DM , and others listed below, presented to the hospital a few days ago with back pain and constipation. Patient lives at home with and typically doctors in [place], his primary oncologist being Dr. Jimenez. Patient was diagnosed with prostate cancer in the ', has been on Lupron and Casodex for many years. Sounds like he does not follow up regularly/closely, but has been doing fairly well until recently. He has become progressively weaker and has had increased back pain. He began taking some of his 's hydrocodone for the pain and became constipated-- no BM since Thursday of last week. Patient had CT scan upon admission which did show marked constipation, but also revealed widespread metastatic disease to the lungs and liver, he also has retroperitoneal lymphadenopathy concerning for mets. Given these new findings, palliative care is consulted as well as heme/onc. I met with patient this morning in room 417. He is hard of hearing, but awake, alert and oriented x4. He denies any complaints at this time but did have to take Tylenol this morning for his back pain-- he states the Tylenol worked. Patient is realistic about his situation. He says that he is "87 years old, I don't want to take anything (further chemo) that's going to make me worse." However, patient says he really has not had a conversation about this with Dr. Jimenez or his family. He does know he would like to go home regardless of the plan. We discussed hospice care as an option, patient would be agreeable but again would like to talk with oncologist and family. See plan below. Past Medical/Surgical History Medical History: Afib Chronic Vargas catheter Colon cancer Prostate cancer DM HLD Htn Social History Smoking Status: Former Smoker History of Alcohol Use: No Drug Use: none Marital Status: Occupation Status: retired Review of Systems Constitutional: No fever, No weakness (is mostly in wheelchair at baseline) ENT: No trouble swallowing Respiratory: No cough, No shortness of breath, No dyspnea on exertion Cardiac: + edema (left leg), No chest pain Abdomen: + constipation, No pain, No nausea, No vomiting Musculoskeletal: + problem reported (back pain) Male : No problem reported (has catheter) Psychiatric: No depression symptoms, No anxiety Allergies Coded Allergies: Sulfa Antibiotics (Unverified Allergy, Unknown, RED URINE, 01/03/18) Medications Current Inpatient Medications Medications (Trade) Dose Ordered Sig/Erik Route Start Time Stop Time Status Last Admin Dose Admin Amiodarone HCl (Cordarone Tab) 200 mg DAILY PO 01/03/18 14:00 02/02/18 13:59 01/04/18 08:37 200 MG Rivaroxaban (Xarelto Tab) 15 mg QDD PO 01/03/18 17:00 02/02/18 16:59 01/03/18 15:31 15 MG Al Hydrox/Mg Hydrox/Simethicone (Maalox Max Susp) 15 ml Q4H PRN PO 01/03/18 12:30 02/02/18 12:29 Magnesium Hydroxide (Milk Of Magnesia Susp) 30 ml Q6H PRN PO 01/03/18 12:30 02/02/18 12:29 01/04/18 08:39 30 ML Ondansetron HCl (Zofran Inj) 4 mg Q6H PRN IV 01/03/18 12:30 02/02/18 12:29 Oxycodone HCl (Roxicodone Immediate Rel Tab) 10 mg Q6 PRN PO 01/03/18 12:30 01/17/18 12:29 Acetaminophen (Tylenol Tab) 1,000 mg BID PO 01/03/18 20:00 02/02/18 20:59 01/04/18 08:39 1,000 MG Polyethylene (Miralax Powder Packet) 17 gm BID PO 01/03/18 20:00 02/02/18 20:59 01/04/18 08:38 17 GM Senna (Senokot Tab) 8.6 mg BID PO 01/03/18 20:00 02/02/18 20:59 01/04/18 08:38 8.6 MG Miscellaneous (Iv Fluids Completed) 1 ea PRN PRN N/A 01/03/18 14:30 01/03/19 14:29 01/04/18 03:15 1 EA Prednisone (PredniSONE TAB) 5 mg BID PO 01/03/18 20:00 02/02/18 19:59 01/04/18 08:37 5 MG Hydralazine HCl (HydrALAZINE INJ) 20 mg Q6 PRN IV. 01/04/18 09:45 02/03/18 09:44 Lisinopril (Zestril Tab) 5 mg QAM PO 01/05/18 08:00 02/04/18 07:59 Magnesium Citrate (Citrate Of Magnesia Soln) 150 ml DAILY PRN PO 01/04/18 10:30 02/03/18 10:29 Bisacodyl (Dulcolax Supp) 10 mg DAILY PRN NJ 01/04/18 10:30 02/03/18 10:29 Sodium Biphosphate/ Sodium Phosphate (Fleet Enema) 132 ml DAILY PRN NJ 01/04/18 10:30 02/03/18 10:29 Physical Exam Date Time Temp Pulse Resp B/P (MAP) Pulse Ox O2 Delivery O2 Flow Rate FiO2 01/04/18 08:00 99 Room Air 01/04/18 08:00 36.4 78 18 170/92 (118) 99 Room Air 01/04/18 04:00 36.6 62 20 175/98 (123) 96 Room Air 01/04/18 00:05 9 Room Air 01/04/18 00:00 36.6 70 18 177/92 (120) 96 Room Air 01/03/18 20:20 96 Room Air 01/03/18 20:00 36.4 80 18 168/86 (113) 96 Room Air 01/03/18 15:30 36.3 71 20 162/82 (108) 97 Room Air 01/03/18 14:08 36.6 75 16 188/93 95 Room Air 01/03/18 13:19 69 16 172/88 95 01/03/18 12:16 74 16 167/88 96 Room Air General Appearance: no apparent distress, + pertinent finding (frail, elderly) ENT: hearing grossly normal Neck: supple, no JVD Respiratory: no respiratory distress, no accessory muscle use, + decreased breath sounds (bilateral bases) Cardiovascular: regular rate, rhythm, + pertinent finding (left leg +1 pitting edema; weak pedal pulses due to PVD) Abdomen: normal bowel sounds, non tender, soft, + pertinent finding (states he is not passing gas, but did have a smear bowel movement this morning) Neurologic/Psychiatric: alert, normal mood/affect, oriented x 3 Skin: + pertinent finding (purple skin) Laboratory Results Last 24 Hours Test 01/03/18 16:23 01/03/18 20:41 01/04/18 06:14 Carcinoembryonic Antigen 0.7 ng/ml Prostate Specific Antigen 172.000 ng/ml Total Testosterone 11.2 ng/dl Bedside Glucose 129 mg/dl White Blood Count 5.87 K/uL Red Blood Count 3.76 M/uL Hemoglobin 11.8 g/dL Hematocrit 36.0 % Mean Corpuscular Volume 95.7 fL Mean Corpuscular Hemoglobin 31.4 pg Mean Corpuscular Hemoglobin Concent 32.8 g/dl RDW Standard Deviation 46.0 fL RDW Coefficient of Variation 13.3 % Platelet Count 231 K/uL Mean Platelet Volume 8.6 fL Sodium Level 134 mmol/L Potassium Level 4.1 mmol/L Chloride Level 101 mmol/L Carbon Dioxide Level 28 mmol/L Anion Gap 5.0 mmol/L Blood Urea Nitrogen 17 mg/dl Creatinine 1.12 mg/dl Est Creatinine Clear Calc Drug Dose 46.5 ml/min Estimated GFR () 68.1 Estimated GFR (Non- 58.7 BUN/Creatinine Ratio 15.0 Random Glucose 115 mg/dl Calcium Level 9.1 mg/dl Assessment & Plan Problem list: Back pain Constipation Weakness Compression fracture at T7; compression deformities at L2 and L4 Prostate cancer since - PSA 172 Widespread metastases- lungs, liver, retroperitoneal lymphadenopathy Goals of care (Z51.5) Palliative care recs: -Patient is DNR. -Hospitalist team is treating patient's constipation. -Does not want invasive/aggressive treatment if it is not going to be of significant benefit. -Patient states he really just wants to go home, would want to stay out of hospital. States he only came here because of his constipation. -We discussed the option of hospice care- what it is and the service they provide. Patient is in agreement but needs to talk with his family and would like to talk to his primary oncologist from [place]. -Is being seen in the interim by our heme/onc physicians at [facility] who discontinued Casodex and placed patient on prednisone. They state that patient needs a reevaluation by his primary oncologist for therapeutic change and progression of disease. They have nothing further to add at this time. -Patient states his pain is better. Would alternate Tylenol and Ibuprofen as needed at this time as patient wants to avoid narcotics if possible given the constipation issue. Does have Roxicodone ordered if needed, consider decreasing the dose to 5mg instead of 10mg Q6h PRN. Thank you kindly for this consult. I will follow as needed. Total time spent 50 minutes. Greater than 50% of time with the patient was spent on counseling and coordinating care.
[2018-01-04] MEDS ORDERED: OXYCODONE HCL IR 5 MG TAB (IMMEDIATE RELEASE) PO PRN (16:45)
[2018-01-04] MEDS ORDERED: IBUPROFEN 800 MG TAB PO PRN (16:45)
--- NOTE | 2018-01-04 16:45 | Hospitalist Progress Note ---
Hospitalist Progress Note Date of Service Jan 04, 2018. Subjective Pt evaluation today including: conversation w/ patient, conversation w/ family ( and family friend), physical exam, chart review, lab review, review of studies, conversation w/ consultant teacher (spoke with palliative), review of inpatient medication list Pain: None PO Intake: Tolerating PO diet Voiding: fair catheter in place Patient reports feeling well aside from not moving his bowels. He has intermittent back pain with 2 known previous compression fractures in the lumbar spine but denies any pain now. He denies any complaints. The patient denies fevers, chills, sweats, chest pain, palpitations, claudication, cough, wheezing, shortness of breath, nausea, vomiting, abdominal pain, dysuria, hematuria, urinary retention, paralysis, weakness, numbness and tingling. Additional Comments: See HPI for pertinent positives and negatives. All other systems reviewed and negative. Objective Vital Signs Date Time Temp Pulse Resp B/P (MAP) Pulse Ox O2 Delivery O2 Flow Rate FiO2 01/04/18 16:24 36.4 78 16 111/77 (88) 95 Room Air 01/04/18 11:29 36.5 79 18 138/73 (94) 98 Room Air 01/04/18 08:00 99 Room Air 01/04/18 08:00 36.4 78 18 170/92 (118) 99 Room Air 01/04/18 04:00 36.6 62 20 175/98 (123) 96 Room Air 01/04/18 00:05 9 Room Air 01/04/18 00:00 36.6 70 18 177/92 (120) 96 Room Air 01/03/18 20:20 96 Room Air 01/03/18 20:00 36.4 80 18 168/86 (113) 96 Room Air Physical Exam Notes: General appearance: Well-developed, well-nourished, no apparent distress Head: Normocephalic, atraumatic Eyes: +Right eye ectropion. PERRL, EOMI ENT: Normal ENT inspection, hearing grossly normal, pharynx normal Neck: Supple, no JVD, trachea midline Respiratory/Chest: Lungs clear to auscultation, normal breath sounds, no respiratory distress Cardiovascular: Regular rate & rhythm, no gallop, no murmur Abdomen/GI: +Mild distention, hard. Normal bowel sounds, non-tender Extremities/Musculoskeletal: +Chronic venous stasis changes in lower legs bilaterally. Trace pitting edema. No calf tenderness Neurological/Psych: Alert, normal mood/affect, oriented x 3 Skin: Normal color, warm/dry, no rash Laboratory Results Last 24 Hours Test 01/03/18 20:41 01/04/18 06:14 Bedside Glucose 129 mg/dl White Blood Count 5.87 K/uL Red Blood Count 3.76 M/uL Hemoglobin 11.8 g/dL Hematocrit 36.0 % Mean Corpuscular Volume 95.7 fL Mean Corpuscular Hemoglobin 31.4 pg Mean Corpuscular Hemoglobin Concent 32.8 g/dl RDW Standard Deviation 46.0 fL RDW Coefficient of Variation 13.3 % Platelet Count 231 K/uL Mean Platelet Volume 8.6 fL Sodium Level 134 mmol/L Potassium Level 4.1 mmol/L Chloride Level 101 mmol/L Carbon Dioxide Level 28 mmol/L Anion Gap 5.0 mmol/L Blood Urea Nitrogen 17 mg/dl Creatinine 1.12 mg/dl Est Creatinine Clear Calc Drug Dose 46.5 ml/min Estimated GFR () 68.1 Estimated GFR (Non- 58.7 BUN/Creatinine Ratio 15.0 Random Glucose 115 mg/dl Calcium Level 9.1 mg/dl Assessment and Plan 87 y/o male with a history of colon cancer s/p bowel resection, prostate cancer , a-fib, and gout who presents with constipation and issues with back pain found to have widely metastatic prostate cancer. Metastatic prostate cancer--stable, no pain -Admit to med/surg -Heme/onc consulted, appreciate recs: D/C Casodex to try to elicit hormone withdrawal response to tumor. Continue prednisone 5 mg PO BID. At some point, patient should be reevaluated and considered for a therapeutic change. -Palliative care consulted, appreciate recs: Spoke with Brandi Guerin. Pt is very realistic about disease and wants to go home and avoid further hospitalizations. Pt agreeable to home hospice but will talk to family first and wants to touch base with primary oncologist, Dr. Jimenez, in [place]. Recommend alternating Tylenol and ibuprofen for pain and decreasing oxycodone to 5 mg due to constipation. -Add ibuprofen 800 mg PO TID prn pain -Decrease oxycodone IR to 5 mg PO q6h prn pain -Personally spoke with at length regarding metastatic findings, prognosis, goals of care, and next steps Constipation -Continue Miralax and Senna BID -Fleet enema prn, Dulcolax suppository prn -Mag citrate now, then daily prn A-fib--stable, NSR -Continue amiodarone 200 mg PO qd and Xarelto 15 mg PO qd HTN--no home meds, but BP persistently elevated here -Start lisinopril 5 mg PO qd, BP now improving -Cover with hydralazine 20 mg IV q6h prn SBP >180 DVT prophylaxis -Xarelto Code Status -Level V, DO NOT RESUSCITATE
[2018-01-04] MEDS: RIVAROXABAN TAB 15 MG TAB PO SCH (17:43)
[2018-01-05 00:06] VITALS: BP 114/68; PULSE 62; TEMP 36.3; O2SAT 95
[2018-01-05 03:44] VITALS: BP 111/69; PULSE 72; TEMP 36.4; O2SAT 96
[2018-01-05 07:46] VITALS: BP 111/69; PULSE 71; TEMP 36.9; O2SAT 95
[2018-01-05] MEDS: SENNA 8.6 MG TAB PO SCH (07:49)
[2018-01-05] MEDS: POLYETHYLENE (MIRALAX) 17 GM PACK PO SCH (07:49)
[2018-01-05] MEDS: ACETAMINOPHEN 500 MG TAB PO SCH (07:49)
[2018-01-05] MEDS: AMIODARONE 200 MG TAB PO SCH (07:49)
[2018-01-05] MEDS ORDERED: LISINOPRIL 5 MG TAB PO SCH (08:00)
--- NOTE | 2018-01-05 09:40 | HEME/ONC PROGRESS NOTE ---
DATE: 01/05/2018 DIAGNOSES: 1. Constipation. 2. Metastatic prostate cancer. 3. Chronic pain syndrome. SUBJECTIVE: Mr. Barraza was seen and examined again at bedside. He was originally admitted because of prolonged constipation after taking a pain medication leading up to admission to hospital. CT scan of the abdomen and pelvis performed on admission with findings concerning for metastatic disease including retroperitoneal as well as mediastinal lymphadenopathy and hepatic metastatic disease. Extensive nodular soft tissue extension from the base of the prostate was also noted. Engaged in a lengthy discussion with Mr. Barraza today regarding his desire to pursue salvage treatment. He would like to discuss his situation with his medical oncologist, Dr. Jimenez in [place] and ultimately decided. Clearly, he recognizes being of advanced age and failing performance status, he may opt for a palliative approach. He reports no complaints today and hopes to be discharged. PHYSICAL EXAMINATION: GENERAL: He is in no acute distress. VITAL SIGNS: Temperature 36.9, pulse 71, respirations 16, blood pressure 111/69. SKIN: Without rash or lesion. HEENT: Oral mucosa without erythema or ulceration. NECK: Neck supple. HEART: Regular rate and rhythm. LUNGS: Clear to auscultation. ABDOMEN: Soft, nontender, nondistended. EXTREMITIES: No clubbing, cyanosis or edema. NEUROLOGIC: Grossly intact. LABORATORY DATA: From yesterday, WBC count 5870, hemoglobin 11.8, platelet count 231,000. Sodium 134, potassium 4.1, chloride 101, carbon dioxide 28, BUN 17, creatinine 1.12. PSA as measured on January 03. IMPRESSION: 1. Constipation. 2. Chronic pain syndrome secondary to progressive metastatic disease. 3. Metastatic prostate cancer. PLAN: According to Mr. Barraza, he is pending discharge to home today. He understands the terminal nature of his condition and wants to take time to consider his options. I briefly discussed potential therapeutic options including Zytiga versus Taxotere. Mr. Barraza clearly recognizes his failing performance status and loss of life quality. From this morning's discussion, I suspect he may opt to go a more palliative route. I offered him [facility] care [facility]; however, he is hesitant to agree because of the distance from his home. He will ultimately let us know what he chooses to do upon discharge. I have nothing further to add at this juncture. Thank you very much for allowing us to participate in the care of this very pleasant gentleman and we will officially sign off today. [facility]
[2018-01-05 11:58] VITALS: BP 130/81; PULSE 70; TEMP 36.5; O2SAT 97
[2018-01-05] MEDS ORDERED: MRLP17X PO ×2 (14:09)
[2018-01-05] MEDS ORDERED: MTR800 PO ×2 (14:09)
[2018-01-05] MEDS ORDERED: SENN-61 PO ×2 (14:09)
[2018-01-05] MEDS ORDERED: ACET-24 PO ×2 (14:09)
--- NOTE | 2018-01-05 14:13 | Discharge Instructions ---
Discharge Instructions Date of Service Jan 05, 2018. Admission Reason for Admission: Constipation,Prostate Cancer Discharge Discharge Diagnosis / Problem: Constipation, prostate cancer Discharge Goals Goal(s): Improve disease control, Diagnostic testing, Therapeutic intervention Activity Recommendations Activity Limitations: as noted below Exercise/Sports Limitations: gradually increase as tolerated Instructions / Follow-Up Instructions / Follow-Up You were admitted with constipation likely related to taking hydrocodone for your pain. Please do not take hydrocodone for pain-just take Tylenol or Ibuprofen as needed for pain. You were treated for constipation and had multiple bowel movements with relief of your constipation. The Oncologist here stopped your Casodex in hopes that this might help your prostate cancer improve. Please follow up with your Oncologist to determine if you should remain on your current medications, or begin a new regimen, vs. starting Hospice/Palliative Care. Please follow up with your PCP within 1 week. . Current Hospital Diet Patient's current hospital diet: Diabetes Type 2 Diet Discharge Diet Recommended Diet: Diabetes Type 2 Diet Procedures Procedures Performed: CT Thoracic Spine CT abdomen/pelvis Pending Studies Studies pending at discharge: no Medical Emergencies . Who to Call and When: Medical Emergencies: If at any time you feel your situation is an emergency, please call 911 immediately. . Non-Emergent Contact Non-Emergency issues call your: Primary Care Provider, Oncologist Call Non-Emergent contact if: you have a fever, temperature is above 100.5, your pain is not controlled, your pain is worsening, your pain is unusual for you, your pain is concerning you, you have any medication questions . . "Provider Documentation" section prepared by Lanie Britton. . VTE Core Measure Inpt VTE Proph given/why not?: Other Anticoagulation
[2018-01-05 14:14] VITALS: BP 115/75; PULSE 72; TEMP 36.6; O2SAT 97
[2018-01-05 14:20] VITALS: BP 115/75; PULSE 72; TEMP 36.6; O2SAT 97
--- NOTE | 2018-01-05 14:26 | Discharge Summary ---
Discharge Summary Date of Service Jan 05, 2018. Discharge Summary Admission Date: Jan 03, 2018 at 12:25 Discharge Date: Jan 05, 2018 Discharge Disposition: Home with services Principal Diagnosis: Constipation Problems/Secondary Diagnoses: History of colon cancer s/p bowel resection Metastatic prostate cancer Paroxysmal atrial fibrillation on fci anticoagulation Gout HTN Thoracic and lumbar compression fractures Chronic indwelling Vargas catheter Immunizations: Have You Had Influenza Vaccine: Unknown Procedures: CT abd/pel CT Thoracic spine Consultations: Oncology Medication Reconciliation New Medications: Polyethylene (Miralax) 17 Gm Pow 17 GM PO BID PRN for Constipation for 30 Days Acetaminophen (Sb Non-Aspirin Extra Stre) 500 Mg Tab 1000 MG PO TID PRN for Pain for 30 Days Ibuprofen (Ibuprofen) 800 Mg Tab 800 MG PO TID PRN for pain for 30 Days, TAB Senna (Senokot) 8.6 Mg Tab 8.6 MG PO BID PRN for Constipation for 30 Days Continued Medications: Amiodarone Hcl (Cordarone) 200 Mg Tab 200 MG PO DAILY, TAB Ascorbic Acid (Vitamin C) 500 Mg Tab 500 MG PO BID B-Complex W/ C & Folic Acid ([place] Caps) 1 Cap Cap 1 CAP PO DAILY Colchicine (Colchicine) 0.6 Mg Tab 0.6 MG PO BID PRN for GOUT, TAB Leuprolide Acetate (Lupron Depot) 7.5 Mg Inj Unknown Dose IM [id number] PROSTATE CANCER Multiple Vitamins W/ Minerals (Preservision Areds 2) 1 Cap Cap 1 CAP PO DAILY Rivaroxaban (Xarelto) 15 Mg Tab 15 MG PO DAILY Discontinued Medications: Bicalutamide (Casodex) 50 Mg Tab 50 MG PO DAILY, TAB Hydrocodone/Acetaminophen 5MG/325MG ([place] 5MG/325MG) Tab 1 TABLET PO UD PRN for Pain, TAB IS NOT PRESCRIBED. HAS BEEN TAKING FAMILY MEMBER'S MED Discharge Exam Pt feeling well, no pain in back currently, has had multiple BMs, is ready for discharge to home. Wants to talk to his primary Oncologist about treatment options prior to deciding about enrollment in Home Hospice. Review of Systems: Constitutional: No problem reported Eyes: No problem reported ENT: No problem reported Respiratory: No problem reported Cardiovascular: No problem reported Abdomen: No problem reported Musculoskeletal: + problem reported (back pain) Genitourinary - Male: No problem reported Neurologic: No problem reported Psychiatric: No problem reported Endocrine: No problem reported Hematologic / Lymphatic: No problem reported Integumentary: No problem reported Physical Exam: General Appearance: WD/WN, no apparent distress Eyes: sclerae normal, + pertinent finding (chronic right lid lag) ENT: hearing grossly normal Neck: trachea midline Respiratory/Chest: lungs clear, normal breath sounds, no respiratory distress, no accessory muscle use Cardiovascular: regular rate, rhythm, no gallop, no murmur, normal peripheral pulses, + pertinent finding (trace pitting edema legs bilat with chronic venous stasis dermatitis) Abdomen / GI: normal bowel sounds, non tender, soft Extremities: no calf tenderness Neurologic/Psychiatric: alert, normal mood/affect, oriented x 3 Skin: normal color, warm/dry Hospital Course Pt is an 87 y/o male with a history of colon cancer s/p bowel resection, prostate cancer, a-fib, and gout who presents with constipation and issues with back pain found to have widely metastatic prostate cancer. Metastatic prostate cancer--stable, no pain currently on tylenol and ibuprofen -Heme/onc consulted, appreciate recs: D/C Casodex to try to elicit hormone withdrawal response to tumor. Was started on prednisone 5 mg PO BID, but will hold off on this on discharge and let primary Oncologist decide if should stay on this. At some point, patient should be reevaluated and considered for a therapeutic change. -Palliative care consulted, appreciate recs: Pt is very realistic about disease and wants to go home and avoid further hospitalizations. Pt agreeable to home hospice but will talk to family first and wants to touch base with primary oncologist, Dr. Jimenez, in [place]. Recommend alternating Tylenol and ibuprofen for pain and avoiding opioids due to constipation. Constipation-resolved -Continue Miralax and Senna BID -Fleet enema prn, Dulcolax suppository prn -Mag citrate given x 1 A-fib--stable, NSR here -Continue amiodarone 200 mg PO qd and Xarelto 15 mg PO qd HTN--no home meds, but BP persistently elevated here -Started on lisinopril 5 mg PO qd, BP now improving, but will not likely need upon discharge-stopped Stable for discharge to home with Home Health Total Time Spent: Greater than 30 minutes This includes examination of the patient, discharge planning, medication reconciliation, and communication with other providers. Discharge Instructions Please refer to the electronic Patient Visit Report (Discharge Instructions) for additional information. Follow-Up PCP within 1-2 weeks Oncology within 1-2 weeks Additional Copies To Davion Jimenez M.D.; Iban Nur M.D.
== END 2018-01-05 15:00 | disposition home or self-care (01) ==
LOC: C.EDB 09:28 → C.4E 12:25 → ENRESERV 12:50
PROVIDERS: ADMIT Internal Medicine; ATTEND Hospitalist
DX: K59.00 Constipation, unspecified (principal); Z85.038 Personal history of other malignant neoplasm of large intestine; Z90.89 Acquired absence of other organs; C79.82 Secondary malignant neoplasm of genital organs; I48.0 Paroxysmal atrial fibrillation; Z79.01 Long term (current) use of anticoagulants; M10.9 Gout, unspecified; I10 Essential (primary) hypertension; M48.56XA Collapsed vertebra, not elsewhere classified, lumbar region, initial encounter for fracture; M48.54XA Collapsed vertebra, not elsewhere classified, thoracic region, initial encounter for fracture; G89.4 Chronic pain syndrome; Z79.899 Other long term (current) drug therapy; Z88.2 Allergy status to sulfonamides; Z87.891 Personal history of nicotine dependence; Z83.3 Family history of diabetes mellitus; Z82.49 Family history of ischemic heart disease and other diseases of the circulatory system; Z80.9 Family history of malignant neoplasm, unspecified; Z84.1 Family history of disorders of kidney and ureter; Z83.6 Family history of other diseases of the respiratory system

== ENCOUNTER → 2018-01-20 | Outpatient (CLI) | payer OTHER ==
[~2018-01-20] MED LIST changes: +ACET-1256 PO; +ACET-24 PO; -BICA50TA6 PO; +CEPH500C PO; +COLC0.6T54 PO; +DOCU100C PO; +MRLP17X PO; -MTHH1 PO; +MTR800 PO; +POLY335019 PO; -POTA20TA16 PO; +SENN-61 PO
--- NOTE | 2018-01-20 12:13 | DIAGNOSTIC IMAGING REPORT ---
PET/CT SKULL-THIGH HISTORY: Lung nodule. Prostate carcinoma. R91.1 TECHNIQUE: PET/CT was performed from the base of the skull through the pelvis following the intravenous administration of 15.4 mCi of F18-FDG. Non-contrast CT imaging was performed over the same range without breath-hold for attenuation correction of PET images and anatomic correlation, but not for primary interpretation as it is not of standard diagnostic quality. CT DOSE: COMPARISON: Bone scan December 2017, CT 01/03/2018 FINDINGS: HEAD AND NECK: There is no FDG-avid disease or significant lymphadenopathy in the imaged portions of the head and the neck. CHEST: Multiple bilateral parenchymal nodules previously described on CTs of the abdomen and thoracic spine. Multiple small parenchymal nodules are present which show no significant metabolic activity. This most likely is secondary to their small size. 1.6 cm spiculated nodule left upper lung have been a moderate increase in SUV characteristics to 1.9. Superior segment left lower lobe nodularity measuring SUV to 1.7. Left infrahilar nodularity having SUVs of 2.1. Nodule right lung base measuring 2 cm having history of these 2.4. Additional basilar nodules present 2. Small to accurately measure metabolic character. Subcarinal adenopathy demonstrating increased metabolic activity to SUVs of 6.5. Maximum dimension is 3.6 cm. Mild increase in activity of T7 secondary to patient's known compression deformity. ABDOMEN/PELVIS: Increased activity of several metastatic deposits within the right as well as left hepatic lobes. HISTORY: Be characteristics are 4.8-5.5. Para-aortic adenopathy previously described demonstrates increased SUVs to 5.5. Other bulky adenopathy within the aortic bifurcation with SUVs to 5.3. Iliac chain mariajose pathology also moderately active metabolically. MUSCULOSKELETAL: Degenerative and postoperative changes of the thoracolumbar spine. Focus of increased metabolic activity lateral aspect left inferior pubic ring demonstrate SUVs of 3.1. Small blastic metastatic focus of the right femoral neck. IMPRESSION: 1. Findings of diffuse metastatic change throughout the chest abdomen and pelvis. 2. Diffuse bilateral pulmonary parenchymal nodularity demonstrated increased metabolic activity consistent with metastatic disease. 3. Bulky subcarinal adenopathy 4. Metabolically active abdominal and pelvic retroperitoneal and iliac chain mariajose pathology. 5. Developing bony metastatic change within the bony pelvis and right hip The above report was generated using voice recognition software. It may contain grammatical, syntax or spelling errors. Electronically signed by: Ronnie Sahu M.D. 01/20/2018 12:11 PM Dictated Date/Time: 01/20/2018 11:54 AM
== END | disposition home or self-care (01) ==
LOC: C.PET 08:37
PROVIDERS: ATTEND Internal Medicine Hematology & Oncology
DX: R91.1 Solitary pulmonary nodule (principal); R60.0 Localized edema

== ENCOUNTER 2018-01-25 21:48 | Emergency (ER) | payer OTHER ==
[~2018-01-25] VITALS: Ht 175.3 cm; Wt 84.1 kg
[~2018-01-25 21:48] MED LIST changes: -ACET-1256 PO; -CEPH500C PO; -DOCU100C PO; -POLY335019 PO
[2018-01-25 21:55] VITALS: TEMP 36.3; Ht 175.3 cm; Wt 84.1 kg
[2018-01-26] MEDS ORDERED: ACET-1256 PO
[2018-01-26] MEDS ORDERED: POLY335019 PO
[2018-01-26] MEDS ORDERED: DOCU100C PO
[2018-01-26] MEDS ORDERED: CEPHALEXIN 500MG HOME PACK 1 EA BTL PO ONE
[2018-01-26 00:13] VITALS: BP 125/72; PULSE 81; O2SAT 96
[2018-01-26] MEDS ORDERED: CEPH500C PO (00:21)
--- NOTE | 2018-01-26 03:04 | EMERGENCY ROOM VISIT NOTE ---
History Report prepared by Vinicio: Alvin Clemente Under the Supervision of: Dr. Gabe Perez M.D. First contact with patient: 22:31 Chief Complaint: CATHETER REPLACEMENT Stated Complaint: BLOCKED CATH History of Present Illness The patient is an 87 year old male who presents to the Emergency Room with complaints of an episode of a blocked catheter occurring four hours ago. The patient states that he has a catheter in place because he had no control over his bladder. He notes that he had the catheter placed for the past few years. He reports that his catheter stopped flowing four hours ago, and might need to be replaced. The patient states that he recently had a PSA of 126 and is waiting on PET scan results for possible prostate cancer. Per daughter, the patient's urine was clear this morning but appeared milky tonight. Pt denies LOC , headache, fevers, chills, diaphoresis, visual changes, neck pain, chest pain, breathing difficulties, nausea, vomiting, abdominal pain, back pain, melena, hematochezia, numbness, weakness, lymphadenopathy, rash, or other complaints. Source of History: patient Onset: four hours ago Position: other (penis) Quality: other (blocked fair catheter) Timing: other (an episode) Note: Per daughter, the patient's urine was milky tonight. Review of Systems See HPI for pertinent positives and negatives. A total of six systems were reviewed and were otherwise negative. Past Medical & Surgical Medical Problems: (1) Atrial fibrillation (2) Chronic indwelling Fair catheter (3) Colon cancer (4) Constipation (5) Diabetes (6) Fair catheter in place (7) Hyperlipidemia (8) Hypertension (9) Prostate cancer (10) Prostate cancer, primary, with metastasis from prostate to other site Surgical Problems: (1) H/O eye surgery (2) H/O knee surgery (3) History of colon surgery Family History Diabetes mellitus FH: heart disease FH: lung disease FHx: cancer Hypertension Kidney disease Kidney stones Social History Smoking Status: Never Smoker Alcohol Use: none Drug Use: none Marital Status: Housing Status: lives with family Occupation Status: retired Current/Historical Medications Scheduled Amiodarone Hcl (Cordarone), 200 MG PO DAILY Ascorbic Acid (Vitamin C), 500 MG PO BID B-Complex W/ C & Folic Acid ([place] Caps), 1 CAP PO DAILY Cephalexin Monohydrate (Keflex), 500 MG PO QID Leuprolide Acetate (Lupron Depot), Unknown Dose IM Q5 months Multiple Vitamins W/ Minerals (Preservision Areds 2), 1 CAP PO BID Rivaroxaban (Xarelto), 15 MG PO DAILY Scheduled PRN Acetaminophen (Tylenol), 1,000 MG PO TID PRN for Pain Colchicine (Colchicine), 0.6 MG PO BID PRN for GOUT Docusate Sodium (Stool Softener), 100 MG PO BID PRN for Constipation Polyethylene Glycol 3350 (Miralax), 17 GM PO DAILY PRN for Constipation Allergies Coded Allergies: Sulfa Antibiotics (Verified Allergy, Unknown, RED URINE, 01/25/18) Physical Exam Vital Signs Date Time Temp Pulse Resp B/P (MAP) Pulse Ox O2 Delivery O2 Flow Rate FiO2 01/26/18 00:13 81 20 125/72 96 Room Air 01/25/18 23:42 80 20 127/82 96 Room Air 01/25/18 21:55 36.3 94 20 158/87 95 Room Air Physical Exam GENERAL: Awake, alert, well-appearing, in no distress HENT: Normocephalic, atraumatic. Oropharynx unremarkable. EYES: Normal conjunctiva. Sclera non-icteric. NECK: Supple. No nuchal rigidity. FROM. No masses. RESPIRATORY: Clear to auscultation. No wheezes. CARDIAC: Normal rate. Normal rhythm. Systolic ejection murmurs. No rubs. Extremities warm and well perfused. Pulses equal. No JVD. GI: Soft, non-distended. No tenderness to palpation. No rebound or guarding. No masses. : Fair catheter in place. MUSCULOSKELETAL: Atraumatic. Chest examination reveals no tenderness. The back is symmetrical on inspection without obvious abnormality. There is no CVA tenderness to palpation. No joint edema. LOWER EXTREMITIES: Calves are equal size bilaterally and non-tender. No edema. NEURO: Normal sensorium. No sensory or motor deficits noted. SKIN: No rash or jaundice noted. Chronic penis discoloration. Medical Decision & Procedures Laboratory Results Test 01/25/18 22:55 Urine Color YELLOW Urine Appearance CLOUDY (CLEAR) Urine pH 7.5 (4.5-7.5) Urine Specific [place] 1.015 (1.000-1.030) Urine Protein 1+ (NEG) Urine Glucose (UA) NEG (NEG) Urine Ketones NEG (NEG) Urine Occult Blood 3+ (NEG) Urine Nitrite POS (NEG) Urine Bilirubin NEG (NEG) Urine Urobilinogen NEG (NEG) Urine Leukocyte Esterase LARGE (NEG) Urine WBC (Auto) >30 /hpf (0-5) Urine RBC (Auto) >30 /hpf (0-4) Urine Hyaline Casts (Auto) 1-5 /lpf (0-5) Urine Epithelial Cells (Auto) 0-5 /lpf (0-5) Urine Bacteria (Auto) 4+ (NEG) Laboratory results reviewed by me Medications Administered Medications (Trade) Dose Ordered Sig/Erik Route Start Time Stop Time Status Last Admin Dose Admin Cephalexin Monohydrate (Keflex 500MG Home Pack) 1 homepack NOW ONCE PO 01/26/18 00:00 01/26/18 00:01 DC 01/26/18 00:14 1 HOMEPACK ED Course 2248: The patient was evaluated in room A3. A complete history and physical exam was performed. 0000: Cephalexin Monohydrate 1 homepack PO 0115: I reevaluated the patient. Discussed results and discharge instructions: he verbalized understanding and agreement. The patient is ready for discharge. Medical Decision The patient presented to the emergency department with complaints of a malfunctioning Fair catheter. Differential includes obstruction, dislodgment, infection, as well as others. His catheter was removed. A brand-new catheter was placed uneventfully. A significant amount of urine was obtained. The patient had resolution of his symptoms. Urinalysis was concerning for infection. A culture was sent. The patient was placed on Keflex. I discussed conservative management. The patient and family did query about his recent PET scan. I did review the results with them. This was concerning for diffuse metastatic disease. The patient will be following up with oncology this week. Clinically he is doing well under the circumstances. The patient and family would like to go home. If he worsens in any way or has any other catheter problems he will come back. He will also follow-up with his urologist. I gave my usual and customary discussion regarding this issue. By the evaluation outlined above other emergent etiologies such as those listed in the differential, as well as others, were deemed relatively unlikely. The patient was educated about the findings as listed above. All questions were answered and the patient was pleased with the treatment. Return instructions were outlined and the patient was discharged in stable condition. The patient was referred to his PCP and oncologist for follow-up for a recheck of the current condition. Medication Reconcilliation Current Medication List: was personally reviewed by me Blood Pressure Screening Patient's blood pressure: Normal blood pressure Blood pressure disposition: Did not require urgent referral Impression Primary Impression: Malfunction of Fair catheter Additional Impression: UTI (urinary tract infection) Scribe Attestation The scribe's documentation has been prepared under my direction and personally reviewed by me in its entirety. I confirm that the note above accurately reflects all work, treatment, procedures, and medical decision making performed by me. Departure Information Dispostion Home / Self-Care Prescriptions Cephalexin Monohydrate (Keflex) 500 Mg Cap 500 MG PO QID, #24 CAP Prov: Gabe Perez MD 01/26/18 Referrals Ibna Nur M.D. (PCP) Forms HOME CARE DOCUMENTATION FORM Patient Instructions [facility] Additional Instructions Cephalexin(Keflex) 500mg: Take one pill four times daily for 7 days for your urine infection. All antibiotics can cause diarrhea. If this occurs and you feel worse or it does not resolve in 1-2 days follow up with your doctor or return to the Emergency Department as this could be signs of serious underlying problems. Any medication can cause an allergic reaction, stop the pills immediately and return to the ER for rash, hives, breathing difficulties, or swelling. Acetaminophen(Tylenol) may be used for fever or pain. Use 1000mg every six hours as needed. Avoid using more than 4000mg in a 24 hour period. Rest and drink plenty of fluids. Continue current medications. Return to the ER immediately for worsening or persistent abdominal pain, vomiting, fevers, back or flank pain, worsening of your condition, or as needed. Follow up with your primary physician within 2-3 days for a recheck of the current condition. Care for the catheter as discussed. Do not pull on the catheter. Use the leg bag during the day and the large bag at night when you are sleeping. Drain the bag frequently. Do not let it fill completely. Return to the emergency department for fevers, abdominal pain, catheter problems , or as needed. Problem Qualifiers
== END 2018-01-26 00:26 | disposition home or self-care (01) ==
LOC: C.EDB 21:49 → C.EDA 01-26 00:26
DX: T83.091A Other mechanical complication of indwelling urethral catheter, initial encounter (principal); T83.511A Infection and inflammatory reaction due to indwelling urethral catheter, initial encounter; N39.0 Urinary tract infection, site not specified; Y84.6 Urinary catheterization as the cause of abnormal reaction of the patient, or of later complication, without mention of misadventure at the time of the procedure; R97.20 Elevated prostate specific antigen [PSA]; I48.91 Unspecified atrial fibrillation; E11.9 Type 2 diabetes mellitus without complications; E78.5 Hyperlipidemia, unspecified; I10 Essential (primary) hypertension; Z79.01 Long term (current) use of anticoagulants; Z85.038 Personal history of other malignant neoplasm of large intestine; Z88.2 Allergy status to sulfonamides; Z83.3 Family history of diabetes mellitus; Z82.49 Family history of ischemic heart disease and other diseases of the circulatory system; Z80.9 Family history of malignant neoplasm, unspecified; Z84.1 Family history of disorders of kidney and ureter

== ENCOUNTER → 2018-02-15 | Outpatient (CLI) | payer OTHER ==
[~2018-02-15] MED LIST changes: +ACET-1256 PO; -ACET-24 PO; +CEPH500C PO; +DOCU100C PO; -MRLP17X PO; -MTR800 PO; +POLY335019 PO; -SENN-61 PO
[2018-02-15 12:54] LABS: BASO % 0.4 %; BASO ABS # 0.03 K/uL (0-0.2); EOS % 0.8 %; EOS ABS # 0.06 K/uL (0-0.5); HEMATOCRIT 37.3 % (42-52); HEMOGLOBIN 12.2 g/dL (14.0-18.0); IG# 0.04 K/uL (0.00-0.02); LYMPH % 5.9 %; LYMPH ABS # 0.47 K/uL (1.2-3.4); MEAN CELL VOLUME 96.9 fL (80-100); MEAN CORPUSCULAR HEMOGLOBIN 31.7 pg (25-34); MEAN CORPUSCULAR HGB CONC 32.7 g/dl (32-36); MEAN PLATELET VOLUME 8.6 fL (7.4-10.4); MONO % 12.3 %; MONO ABS # 0.98 K/uL (0.11-0.59); NEUT % 80.1 %; NEUT ABS # 6.39 K/uL (1.4-6.5); PLATELET COUNT 310 K/uL (130-400); RED CELL DISTRIBUTION WIDTH CV 14.5 % (11.5-14.5); RED CELL DISTRIBUTION WIDTH SD 51.5 fL (36.4-46.3); WHITE BLOOD COUNT 7.97 K/uL (4.8-10.8)
[2018-02-15 13:39] LABS: ALT/SGPT 15 U/L (12-78); BLOOD UREA NITROGEN 20 mg/dl (7-18); CALCIUM 9.4 mg/dl (8.5-10.1); CARBON DIOXIDE 26 mmol/L (21-32); CREATININE 1.57 mg/dl (0.60-1.40); GLUCOSE 134 mg/dl (70-99); POTASSIUM 4.4 mmol/L (3.5-5.1); SODIUM 132 mmol/L (136-145)
[2018-02-15 13:58] LABS: ALKALINE PHOSPHATASE 153 U/L (45-117); AST/SGOT 15 U/L (15-37); TOTAL PROTEIN 7.4 gm/dl (6.4-8.2)
== END | disposition home or self-care (01) ==
LOC: C.LABMFLN 10:14
PROVIDERS: ATTEND Family Medicine
DX: C61 Malignant neoplasm of prostate (principal); C79.51 Secondary malignant neoplasm of bone

== ENCOUNTER → 2018-06-28 | Outpatient (CLI) | payer OTHER ==
[~2018-06-28] MED LIST changes: -CEPH500C PO; -DOCU100C PO
[2018-06-28 12:50] LABS: BASO % 0.5 %; BASO ABS # 0.04 K/uL (0-0.2); EOS % 2.6 %; HEMATOCRIT 41.4 % (42-52); HEMOGLOBIN 13.6 g/dL (14.0-18.0); IG# 0.05 K/uL (0.00-0.02); LYMPH % 15.1 %; LYMPH ABS # 1.17 K/uL (1.2-3.4); MEAN CELL VOLUME 95.8 fL (80-100); MEAN CORPUSCULAR HEMOGLOBIN 31.5 pg (25-34); MEAN PLATELET VOLUME 9.2 fL (7.4-10.4); MONO % 7.5 %; MONO ABS # 0.58 K/uL (0.11-0.59); NEUT % 73.7 %; NEUT ABS # 5.73 K/uL (1.4-6.5); PLATELET COUNT 253 K/uL (130-400); RED CELL DISTRIBUTION WIDTH CV 14.8 % (11.5-14.5); RED CELL DISTRIBUTION WIDTH SD 52.4 fL (36.4-46.3); WHITE BLOOD COUNT 7.77 K/uL (4.8-10.8)
[2018-06-28 13:06] LABS: MEAN CORPUSCULAR HGB CONC 32.9 g/dl (32-36)
[2018-06-28 13:27] LABS: ALBUMIN 3.3 gm/dl (3.4-5.0); ALKALINE PHOSPHATASE 116 U/L (45-117); ALT/SGPT 16 U/L (12-78); AST/SGOT 14 U/L (15-37); BLOOD UREA NITROGEN 22 mg/dl (7-18); CALCIUM 9.1 mg/dl (8.5-10.1); CARBON DIOXIDE 26 mmol/L (21-32); CREATININE 1.43 mg/dl (0.60-1.40); GLUCOSE 211 mg/dl (70-99); POTASSIUM 4.2 mmol/L (3.5-5.1); SODIUM 134 mmol/L (136-145); TOTAL PROTEIN 7.2 gm/dl (6.4-8.2)
== END | disposition home or self-care (01) ==
LOC: C.LABMFLN 09:41
PROVIDERS: ATTEND Internal Medicine Hematology & Oncology
DX: C61 Malignant neoplasm of prostate (principal)

== ENCOUNTER → 2018-07-12 | Outpatient (CLI) | payer OTHER ==
[2018-07-12 13:08] LABS: HEMOGLOBIN A1C 5.6 % (4.5-5.6)
== END | disposition home or self-care (01) ==
LOC: C.LABMFLN 10:10
PROVIDERS: ATTEND Family Medicine
DX: B35.6 Tinea cruris (principal)